=== PATIENT | male | born 1955 | race Caucasian/White ===

== ENCOUNTER 2024-05-18 13:11 | Outpatient (CLI) | payer MEDICARE, SELFPAY | END 2024-05-18 13:12 | disposition home or self-care (01) | PROVIDERS: PCP Internal Medicine; Visit Provider Internal Medicine | DX: M16.11 Unilateral primary osteoarthritis, right hip (principal) | CPT/HCPCS: 20610; 73721; 77002; J1100; J2003; J3301 ==

== ENCOUNTER 2024-08-09 09:37 | Outpatient (CLI) | payer MEDICARE, SELFPAY ==
--- OUTSIDE RECORDS SUMMARY | 2024-08-09 09:48 | XMS_ITS | Clinical Summary ---
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 Name Role Phone Devi Meyers MD Primary Care Provider Allergies Active Allergy Reactions Criticality Noted Date Comments Jorden Inhibitors Cough Low 12/02/2017 Medications coenzyme Q10 200 mg capsuleIndicati ons:Helps statin work better Take 1 capsule (200 mg total) by mouth nightly Active cyanocobalamin 2,000 mcg tabletIndicatio ns:Prevention of Vitamin B12 Deficiency Take 1 tablet (2,000 mcg total) by mouth every morning Active losartan-hydroC HLOROthiazide (HYZAAR) 50-12.5 mg per tablet Take 1 tablet by mouth every morning 4 Active atorvastatin (LIPITOR) 10 mg tablet Take 1 tablet (10 mg total) by mouth nightly 4 Active glucosamine/msm /chondrt/C/hyal (GLUCOSAMINE-CH ONDROITIN-MSM ORAL)Indication s:Arthritis Take 1 tablet by mouth every morning Active oxyCODONE (ROXICODONE) 5 mg immediate release tabletIndicatio ns:Pain Take 1 tablet (5 mg total) by mouth every 4 (four) hours as needed for pain 5 tablet 4 Active fluorouraciL (EFUDEX) 5 % cream Apply topically 5 Active celecoxib (CeleBREX) 200 mg capsule Take 1 capsule (200 mg total) by mouth daily 5 Active Active Problems Problem Noted Date Diagnosed Date 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 Assessment & Plan (06/01/2018 9:22 AM CDT): Fatigue and levels improved on supplementation. Check again before next visit. Nephrolithiasis 12/02/2017 Assessment & Plan (12/02/2017 9:30 AM CDT): Drink plenty of water to avoid dehydration. Avoid salt and animal proteins. History of colon polyps 09/23/2017 Overview (09/23/2017): Added automatically from request for surgery [id number] BMI 31.0-31.9,adult 04/01/2017 Assessment & Plan (12/08/2018 11:36 AM CDT): Patient is encouraged to lose weight with a combination of caloric reduction and increased exercise. Assessment & Plan (06/01/2018 9:22 AM CDT): Patient is encouraged to lose weight with a combination of caloric reduction and increased exercise. Assessment & Plan (06/18/2017 9:20 PM CDT): Patient is encouraged to lose weight with a combination of caloric reduction and increased exercise. Ganglion of hand 12/06/2016 Healthcare maintenance 09/29/2016 Assessment & Plan (12/08/2018 11:36 AM CDT): Flu shot each December. Tetanus booster every 10 years. Shingrix recommended. Colonoscopy due September 2022. PSA yearly. Will see him back in 6 months for blood pressure, cholesterol, blood sugar check. Assessment & Plan (12/02/2017 9:30 AM CDT): Flu shot each December. Will update his Tdap today. Shingrix recommended. Colonoscopy due September 2022. PSA yearly. Will see him back in 6 months for monitoring his blood pressure, cholesterol, blood sugars, sooner if needed. Assessment & Plan (09/29/2016 11:58 AM CDT): Flu shot each December. Zostavax completed. Tetanus booster June 22, 2017. Colonoscopy due July 2017. PSA normal. Follow-up in 6 months for metabolic panel and a blood pressure check, sooner if needed. Gastroesophageal reflux disease 08/04/2013 Overview (06/23/2016): ESOPHAGEAL REFLUX Assessment & Plan (12/08/2018 11:35 AM CDT): Well controlled without medication. Assessment & Plan (06/01/2018 9:21 AM CDT): If coughing episodes continue, would consider going back on PPI therapy. Assessment & Plan (12/02/2017 9:29 AM CDT): Well controlled without medication Assessment & Plan (06/18/2017 9:20 PM CDT): Stable without medication. May need to try H2 latosha or PPI if coughing does not improve. Assessment & Plan (09/29/2016 11:49 AM CDT): Well controlled without medication. Restart ranitidine as needed. Multiple-type hyperlipidemia 08/04/2013 Overview (06/25/2016): MIXED HYPERLIPIDEMIA Assessment & Plan (12/08/2018 11:35 AM CDT): Well controlled on current therapy and will check a lipid panel and LFTs in 6 months. Assessment & Plan (06/01/2018 9:22 AM CDT): Restart atorvastatin check lipids and LFTs before next visit. Assessment & Plan (12/02/2017 9:29 AM CDT): Well controlled on current therapy and will check a lipid panel and LFTs in 6 months. Assessment & Plan (06/18/2017 9:20 PM CDT): Well controlled on current therapy and will check a lipid panel and LFTs in 6 months. Assessment & Plan (09/29/2016 11:54 AM CDT): Well controlled on current therapy and will check a lipid panel and LFTs in 12 months. Impaired fasting glucose 08/04/2013 Overview (06/25/2016): IMPAIRED FASTING GLUCOSE Assessment & Plan (12/08/2018 11:35 AM CDT): Patient should reduce sugar and carbs, increase exercise, maintain proper body weight, and will check an A1c once or twice yearly. Assessment & Plan (06/01/2018 9:22 AM CDT): Patient should reduce sugar and carbs, increase exercise, maintain proper body weight, and will check an A1c once or twice yearly. Assessment & Plan (12/02/2017 9:29 AM CDT): Patient should reduce sugar and carbs, increase exercise, maintain proper body weight, and will check an A1c once or twice yearly. Assessment & Plan (06/18/2017 9:20 PM CDT): Patient should reduce sugar and carbs, increase exercise, maintain proper body weight, and will check an A1c once or twice yearly. Assessment & Plan (04/05/2017 10:19 PM SERVICES ACCOUNT MANAGER): Patient should reduce sugar and carbs, increase exercise, maintain proper body weight, and will check an A1c once or twice yearly. Assessment & Plan (09/29/2016 11:54 AM CDT): Patient should reduce sugar and carbs, increase exercise, maintain proper body weight, and will check an A1c once or twice yearly. Essential hypertension 01/14/2012 Overview (12/02/2017): Cough with jorden inibitors Assessment & Plan (12/08/2018 11:36 AM CDT): Well controlled on the current regimen. Avoidance of salt, proper body weight, and routine exercise recommended. Assessment & Plan (06/01/2018 9:21 AM CDT): Restart losartan and if coughing returns may need to switch to another class. Assessment & Plan (12/02/2017 9:29 AM CDT): Well controlled on the current regimen. Avoidance of salt, proper body weight, and routine exercise recommended. Assessment & Plan (06/18/2017 9:20 PM CDT): Switch to losartan due to coughing. Call back if no improvement. Side effects discussed will call back if any develop. Assessment & Plan (04/05/2017 10:19 PM SERVICES ACCOUNT MANAGER): Start lisinopril and warned of side effects and should call back if any develop. Check metabolic panel in 6 weeks and have him back in 2 months for repeat evaluation. Avoid salt, increase exercise, lose weight. Assessment & Plan (09/29/2016 11:54 AM CDT): Patient wishes to try to lose weight before next visit in order to control his blood pressure. Avoid salt, lose weight, and repeat blood pressure next visit and start medication if indicated. Encounters Date Type Department Care Team Description 07/27/2024 Orders Only [facility] [address] [place] [address] Bahman Echevarria MD Lip cancer 07/27/2024 Orders Only [facility] Department of Otolaryngology Head-Neck Division [address] [facility] [address] [place] [phone] Tenisha Dennis RN Lip cancer (Primary Dx) 07/24/2024 Telephone [facility] Otolaryngology Formerly [facility], [facility] [place], [place] [phone] Mariann Gutierrez MS 07/23/2024 3:20 PM CDT Office Visit [facility] Department of Otolaryngology Head-Neck Division [address] [place] [phone] Bahman Echevarria MD Lip cancer (Primary Dx) 07/23/2024 1:17 PM CDT - 07/23/2024 11:59 PM CDT Hospital Encounter [facility] [address] [place] [phone] Bahman Echevarria MD Lip cancer Discharge Disposition: Discharge to home or self care 07/18/2024 Orders Only [facility] Department of Otolaryngology Head-Neck Division [address] [place] [phone] Bahman Echevarria MD Lip cancer (Primary Dx) 07/09/2024 1:00 PM CDT Office Visit [facility] Department of Otolaryngology Head-Neck Division [address] [place] [phone] [place] PA Lip cancer (Primary Dx) from Last 3 Months Immunizations Immunization Administration Dates Next Due Influenza, Quadrivalent, Spl it, Intramuscular 02/12/2015 Influenza, Quadrivalent, Spl it, Preservative Free, Intradermal 03/02/2016 Influenza, Quadrivalent, Spl it, Preservative Free, Intramuscular 12/28/2017 Influenza, Split 01/21/2010 Influenza, Trivalent, IM (MDV) 4,01/09/2013,01/12/2012,01/14,01/15/2009 Influenza, Unspecified 12/08/2018(Deferr ed: Patient Refused),11/13/2018(Deferred: Patient ill today - not available),01/28/2017 TD Preservative Free 06/22/2007 Tdap 12/02/2017 ZOSTER LIVE 02/12/2015 Surgical History Surgery Date Site/Laterality Comments TONSILLECTOMY AND ADENOIDECTOMY 03/21/1979 - 03/20/1980 T&A age 25 CERVICAL SPINE SURGERY 03/21/2011 - 03/20/2012 Cervical Disk Removal: Dr Henriquez blew out disc in neck ESOPHAGOGASTRODUODENOSCOPY 10/21/2022 with balloon dilation KNEE ARTHROSCOPY 11/19/2008 - 12/18/2008 Left Left Knee bone chip : Arthroscopic repair 11/2008 - Dr Medardo Villalpando CARPAL TUNNEL RELEASE 10/09/2010 Right right carpal tunnel 10-09-10: [facility]-Dr crews CARPAL TUNNEL RELEASE 11/06/2010 Left left carpal tunnel surgery 11-06-10: Dr. Crews SKIN CANCER EXCISION Skin cancer/ AK's: Dr Phipps q 6 months KNEE SURGERY 02/19/2010 Left left knee surg 02/19/10: Dr. Mccauley [facility] KNEE SURGERY Right GANGLION CYST EXCISION 02/22/2017 Right index finger, Dr Campos COLONOSCOPY 08/16/2012, 10/07/2017 & 10/21/2022 Medical History Medical History Date Comments Gastroesophageal reflux disease GERD Cervical disc disease 2004 Cervical D isk Removal Esophageal stricture esophageal stricture s/p EGD with balloon dilation 10/2022 History of knee surgery Left Kne e bone chip s/p arthroscopy 2008 and left knee surg 02/19/10 History of carpal tunnel release right carpal tunnel 10-09-10 and Left carpal tunnel release 11/06/2010 History of skin cancer Skin canc er/ AK's History of hammer toe correction right hammer toe surgery Hyperlipidemia Skin cancer Multiple s/p exc isions, 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 Family History Medical History Relation Name Comments Cancer Brother Alzheimer's disease Father Cancer Father Other Father Alzheimer's Dis ease - ; Prostate cancer Father Cancer -pros barnhart; Alzheimer's disease Mother Alzheime r's Disease; Anesthesia problems Neg Hx Relation Name Status Comments Brother Father Alive Mother Social History Tobacco Use Types Packs/Day Years Used Date Smoking Tobacco: Never Passive Smoke Exposure: Past Smokeless Tobacco: Former Chew Quit: 1993 Tobacco Cessation:Counseling Given: Not Answered Passive Exposure Comments:mom smoked Alcohol Use Standard Drinks/Week Comments Yes 0 (1 standard drink = 0.6 oz pur e alcohol) occasional AUDIT-C Answer Date Recorded Q1: How often do you have a drink containing alc ohol? 2-4 times a month 12/01/2023 Q2: How many drinks containi ng alcohol do you have on a typical day when you are drinking? 1 or 2 12/01/2023 Q3: How often do you have si x or more drinks on one occasion? Never 12/01/2023 PHQ-2 Answer Date Recorded PHQ-2 Score 0 11/11/2018 Personal Safety Answer Date Recorded Have you ever been in or are you currently in a harmful physical or emotional relationship or is someone making you feel afraid or unsafe? Denies 12/20/2023 Sex and Gender Information Value Date Recorded Sex Assigned at Male 06/06/2018 6:46 PM CDT Legal Sex Male 11:53 PM SERVICES ACCOUNT MANAGER Gender Identity Male 06/06/2018 6:46 PM CDT Sexual Orientation Straight 06/06/2018 6: 46 PM CDT Obstetrics History Last Filed Vital Signs Vital Sign Reading Time Taken Comments Blood Pressure 144/89 12/20/2023 12:30 PM CDT Pulse 62 12/20/2023 12:30 PM CDT Temperature 36 C (96.8 F) 12/20/2023 12:00 PM CDT Respiratory Rate 15 12/20/2023 12:30 PM CDT Oxygen Saturation 93% 12/20/2023 12:30 PM CDT Inhaled Oxygen Concentration - - Weight 92.5 kg (204 lb) 07/23/2024 2:32 PM CDT Height 180.3 cm (5' 10.98 ) 01/09/2024 2:23 PM C DT Body Mass Index 28.47 01/09/2024 2:23 PM CDT Plan of Treatment Health Maintenance Due Date Last Done Comments Hepatitis B Screening 1975 Pneumococcal vaccine 65+ (1 of 1 - PCV) 2007 Prostate Cancer Screening-PSA 11/18/2019, 11/22/2017, 09/18/2016 Depression Screening 12/09/2019 12/08/2018, 11/13/2018, 06/01/2018, Additional history exists Well Visit 65+ 2022 12/08/2018, 11/19, 09/29/2016 Covid-19 Vaccine (2023-2 5 season) 2023 01/20/2022, 02/04/2021, 05/26/2020 Influenza Vaccine (Season Ended) 2024 01/05/2022, 12/30/2020, 12/25/2019, Additional history exists Fall Risk Assessment 12/19/2024 12/20/2023, 12/08/2018, 11/13/2018, Additional history exists Colon Cancer Screening-Colonoscopy 10/22/2027 10/21/2022, 10/07/2017, 08/16/2012 DTaP/Tdap/Td Vaccine (2 - Td or Tdap) 12/03/2027 12/02/2017, 06/22/2007 Hepatitis C Screening Completed 03/19/2017 Zoster Vaccine Completed 01/15/2020, 10/19, 02/12/2015 Colon Cancer Screening-CT Colonography Discontinued 10/21/2022, 10/07/2017, 08/16/2012 Colon Cancer Screening-DNA Stool Discontinued 10/21/2022, 10/07/2017, 08/16/2012 Colon Cancer Screening-FIT Discontinued 10/21, 10/07/2017, 08/16/2012 Colon Cancer Screening-Sigmoidoscopy Discontinued 10/21/2022, 10/07/2017, 08/16/2012 Procedures Procedure Name Priority Date/Time Associated Diagnosis Comments SURGICAL PATHOLOGY Routine 07/31/2024 10 :44 AM CDT Lip cancer CT CHEST W CONTRAST Schedule Routine, Read Routine (OP Routine) 07/23/2024 2:[address] Lip cancer [address] SOFT TISSUE NECK W CONTRAST Schedule Routine, Read Routine (OP Routine) 07/23/2024 2:16 PM CDT Lip cancer COLONOSCOPY 10/21/2022 7:19 AM CDT PSA SCREEN Routine 11/17/2018 6:56 AM CDT Screening for prostate cancer Healthcare maintenance HEPATITIS C AB REFLEX RNA QUANT PCR Routine 03/19/2017 12:09 PM SERVICES ACCOUNT MANAGER from Last 3 Months or Most Recently Relevant to Health Maintenance Results * Surgical pathology (07/31/2024 10:44 AM CDT) Tissue (Miscellaneous) 07/31/2024 10:44 AM CDT 07/06/[address] [facility] - 08/07/2024 9:20 AM CDT EPIC results best viewed via link to PDF [facility] [facility], [address], [place] [address] [email or web address] CONSULT REPORT FINAL Note to Patients: This report may contain a detailed description of human tissue sent by a health care provider to the laboratory for pathologic evaluation. The content of this report is essential for diagnosis and may provide important critical findings. This information may be unfamiliar to patients to review without a medical professional present. It is advised that the patient review this report in the presence of a health care provider who can answer questions and explain the details. PATIENT INFORMATION PATIENT NAME: BLAYNE GONZALEZ SEX: M : DOBAGE SPECIMEN INFORMATION COLLECTED: 07/06/2024 RECEIVED: 07/31/2024 REPORTED: 08/07/2024 PHYSICIAN INFORMATION Bahman Echevarria M.D., PH.D.: [address], [address], [place] [address], , DERMATOPATHOLOGY REPORT RESULTS DIAGNOSIS: SKIN, RIGHT NECK, SHAVE BIOPSY (CASE # [id number], 2 SLIDES RECEIVED): SQUAMOUS CELL CARCINOMA, MODERATELY DIFFERENTIATED Note: The lesion does not extend to the margins of the sections examined in this multiply-sectioned specimen. [id number] By this signature, I attest that the above diagnosis is based upon my personal examination of the slides(and/or other material indicated in the diagnosis). Juan F Shelton M.D. Report Electronically Reviewed and Signed Out By Juan F Shelton M.D. 08/07/2024 09:20:54 CLINICAL INFORMATION LIP CANCER SPECIMEN DATAMICROSCOPIC DESCRIPTION: Atypical keratinocytes that have hyperchromatic nuclei and scant cytoplasms extend from the undersurface of the epidermis into the reticular dermis. CK5/6 and BerEp4 immunohistochemical stains were performed and interpreted at the [facility] to further characterize the tumor. The tumor cells expres CK5/6 but are negative for BerEp4. (C44.92) GROSS DESCRIPTION: Received for review are 2 H&E stained glass slides. The slides are labeled with the original accession [id number], accompanied by a corresponding pathology report. The material originates from [employer] ([place], [place]). Clerical Data Follows A; [id number], 86333 IHC, 61471 The characteristics of special, immunohistochemical, and immunofluorescence stains and in-situ hybridization tests performed by the [facility] were deemed acceptable in ongoing plant quality manager measures and in compliance with regulations drawn from the Clinical Laboratory Improvement Act [id number] (CLIA '88). Control reactions for all stains performed were deemed adequate and appropriate by a pathologist prior to evaluation of patient tissue. Some diagnoses were rendered with the assistance of laboratory-developed tests utilizing analyte-specific reagents; the performance characteristic of these tests were determined by [facility] and are not cleared or approved by the [place] Food an Drug administration. Laboratory developed test may only be performed in a facility that is certified by the [facility] as a high-complexity laboratory under CLIA '88. These tests are used for clinical purposes and are not investigational. Bahman Echevarria MD LAB PATHOLOGY ORDERABL ES Final Result [facility] [address] [address] * CT Chest W Contrast (07/23/2024 2:16 PM CDT) Anatomical Region Laterality Modality Body N/A Computed Tomogra phy 07/23/2024 2:43 PM CDT Impressions 07/23/2024 3:10 PM CDT No evidence of metastatic disease in the chest. Dictated by: Shayne Bishop MD The radiology attending physician has personally reviewed this study, and had reviewed and/or edited this written report and agrees with it. Electronically signed by: Azeem Dominique M.D. Narrative 07/23/2024 3:10 PM CDT EXAMINATION: Computed tomography of the chest with intravenous contrast HISTORY: Squamous cell carcinoma of the lip TECHNIQUE: Transaxial computed tomographic images of the chest were obtained with intravenous contrast according to the standard protocol after the uneventful administration of 113 mL Opti-Ray 350 intravenous contrast. COMPARISON: CT from 11/17/2023 FINDINGS: No new or enlarging pulmonary nodule. No consolidation, pleural effusion, or pneumothorax. Central airways are clear. Mild dependent atelectasis. Heart size is normal. No pericardial effusion. Moderate coronary artery calcifications. Thoracic aorta and main pulmonary artery normal in caliber. Calcified left hilar lymph nodes consistent with old granulomatous disease. No axillary, supraclavicular, or mediastinal lymph nodes. Thyroid is unremarkable. Unchanged hepatic cysts and additional too small to characterize lesions. Punctate calcifications in the spleen consistent with old granulomatous disease. Partially imaged cyst in the superior pole the left kidney. Partially imaged anterior cervical discectomy and fusion. No aggressive osseous lesion. Procedure Note Azeem Dominique MD - 07/23/2024 EXAMINATION: Computed tomography of the chest with intravenous contrast HISTORY: Squamous cell carcinoma of the lip TECHNIQUE: Transaxial computed tomographic images of the chest were obtained with intravenous contrast according to the standard protocol after the uneventful administration of 113 mL Opti-Ray 350 intravenous contrast. COMPARISON: CT from 11/17/2023 FINDINGS: No new or enlarging pulmonary nodule. No consolidation, pleural effusion, or pneumothorax. Central airways are clear. Mild dependent atelectasis. Heart size is normal. No pericardial effusion. Moderate coronary artery calcifications. Thoracic aorta and main pulmonary artery normal in caliber. Calcified left hilar lymph nodes consistent with old granulomatous disease. No axillary, supraclavicular, or mediastinal lymph nodes. Thyroid is unremarkable. Unchanged hepatic cysts and additional too small to characterize lesions. Punctate calcifications in the spleen consistent with old granulomatous disease. Partially imaged cyst in the superior pole the left kidney. Partially imaged anterior cervical discectomy and fusion. No aggressive osseous lesion. IMPRESSION: No evidence of metastatic disease in the chest. Dictated by: Shayne Bishop MD The radiology attending physician has personally reviewed this study, and had reviewed and/or edited this written report and agrees with it. Electronically signed by: Azeem Domniique M.D. Bahman Venkat Echevarria MD IM CT PROCEDURES Jo l Result * CT Neck Soft Tissue W Contrast (07/23/2024 2:16 PM CDT) Anatomical Region Laterality Modality Head and Neck N/A Computed Tomogra phy 07/23/2024 3:21 PM CDT Impressions 07/23/2024 6:39 PM CDT No evidence for recurrent lip squamous cell carcinoma. No evidence for cervical lymphadenopathy. Dictated by: Bradly Hernandez MD The radiology attending physician has personally reviewed this study, and had reviewed and/or edited this written report and agrees with it. Electronically signed by: Dewayne Cai M.D. Narrative 07/23/2024 6:39 PM CDT EXAMINATION: CT of the neck with contrast HISTORY: Lip squamous cell carcinoma, status post resection with negative margins. TECHNIQUE: CT of the neck was performed according to the standard protocol with intravenous contrast. Contrast information: 113 mL Optiray-350 IV COMPARISON: CT neck 11/17/2023. FINDINGS: Scattered subcentimeter lymph nodes are seen in the neck. None are pathologically enlarged or abnormally enhancing. The muscles of the neck are normal. Vessels of the neck demonstrate normal course and caliber. Fascial planes are preserved and the deep spaces of the neck are normal. The visualized airway is widely patent. Small tracheal diverticulum. The base of the skull and the temporal bones are normal. Small mucosal retention cysts in the maxillary sinuses. Limited views of the brain including the cerebellum and brainstem are normal. The limited view of the [place] is unremarkable. The visualized portions of the orbits are normal. Anterior cervical discectomy and fusion from C6-C7 with osseous fusion. There is degenerative disc height loss greatest at the C5-C6 and C7-T1 levels. Multilevel facet and uncovertebral arthropathy with up to moderate to severe neuroforaminal stenosis on the left at C5-C6, similar to prior. Moderate spinal canal stenosis at C5-C6, similar to prior. Limited examination of the superior thorax shows no pulmonary infiltrate, suspicious nodules, or pleural effusions. Procedure Note Dewayne Cai MD - 07/23/2024 EXAMINATION: CT of the neck with contrast HISTORY: Lip squamous cell carcinoma, status post resection with negative margins. TECHNIQUE: CT of the neck was performed according to the standard protocol with intravenous contrast. Contrast information: 113 mL Optiray-350 IV COMPARISON: CT neck 11/17/2023. FINDINGS: Scattered subcentimeter lymph nodes are seen in the neck. None are pathologically enlarged or abnormally enhancing. The muscles of the neck are normal. Vessels of the neck demonstrate normal course and caliber. Fascial planes are preserved and the deep spaces of the neck are normal. The visualized airway is widely patent. Small tracheal diverticulum. The base of the skull and the temporal bones are normal. Small mucosal retention cysts in the maxillary sinuses. Limited views of the brain including the cerebellum and brainstem are normal. The limited view of the [place] is unremarkable. The visualized portions of the orbits are normal. Anterior cervical discectomy and fusion from C6-C7 with osseous fusion. There is degenerative disc height loss greatest at the C5-C6 and C7-T1 levels. Multilevel facet and uncovertebral arthropathy with up to moderate to severe neuroforaminal stenosis on the left at C5-C6, similar to prior. Moderate spinal canal stenosis at C5-C6, similar to prior. Limited examination of the superior thorax shows no pulmonary infiltrate, suspicious nodules, or pleural effusions. IMPRESSION: No evidence for recurrent lip squamous cell carcinoma. No evidence for cervical lymphadenopathy. Dictated by: Bradly Hernandez MD The radiology attending physician has personally reviewed this study, and had reviewed and/or edited this written report and agrees with it. Electronically signed by: Dewayne Cai M.D. Bahman Echevarria MD IMG CT PROCEDURES Jo l Result * COLONOSCOPY (10/21/2022 7:19 AM CDT) Anatomical Region Laterality Modality Other Narrative Procedure Note John Petersen MD - 10/21/2022 7:19 AM CDT [facility] Patient Name: Blayne Gonzalez Procedure Date: 10/21/2022 7:19 AM Date of : 1955 Admit Type: Outpatient Age: 67 Gender: Male Attending MD: John Petersen M.D. Room: [facility] ENDOSCOPY ROOM 1 Note Status: Finalized Patient Profile: Refer to note in patient chart for documentation of history and physical. Procedure: Colonoscopy Indications: High risk colon cancer surveillance: Personalhistory of colonic polyps, Last colonoscopy: September 2017 Referring MD: Devi Meyers MD Providers: John Petersen M.D. Impression: - Hemorrhoids found on perianal exam. - Diverticulosis in the sigmoid colon. - The examination was otherwise normal. - No specimens collected. Recommendation: - Discharge patient to home. - Resume previous diet. - Continue present medications. - Repeat colonoscopy in 5 years for surveillance. - Return to primary care physician as previously scheduled. Medicines: Propofol per Anesthesia Complications: No immediate complications. Estimated Blood Loss: Estimated blood loss: none. Procedure: Pre-Anesthesia Assessment: - This assessment was completed [Time ofAssessment] prior to the administration of sedation. - This assessment was completed [Time ofAssessment] prior to the administration of sedation. The benefits, risks and alternatives of theprocedure and sedation were discussed and informed consentwas obtained. All questions were answered. Please referto the signed informed consent document in the medical record. The bowel preparation used was Miralax via single dose instruction. The bowel preparation used was bisacodyl tablets via single dose instruction.The scope was passed under direct vision. TheColonoscope [id number] was introduced through the anus and advanced to the the cecum, identified by appendiceal orifice and ileocecal valve. The colonoscopy was performed without difficulty. The patient tolerated the procedure well. The qualityof the bowel preparation was excellent. The ileocecal valve, appendiceal orifice, and rectum were photographed. Findings: Hemorrhoids were found on perianal exam. Multiple small and large-mouthed diverticula were found in thesigmoid colon. The exam was otherwise without abnormality. Electronically signed by John Petersen M.D. John Petersen M.D. 10/21/2022 8:35:18 AM Number of Addenda: 0 Note Initiated On: 10/21/2022 7:19 AM Procedure Code(s): --- Professional --- G0105, Colorectal cancer screening; colonoscopy on individual at high risk --- Technical --- G0105, Colorectal cancer screening; colonoscopy on individual at high risk Diagnosis Code(s): --- Professional --- K57.30, Diverticulosis of large intestine without perforation orabscess without bleeding K64.9, Unspecified hemorrhoids Z86.010, Personal history of colonic polyps --- Technical --- K57.30, Diverticulosis of large intestine without perforation orabscess without bleeding K64.9, Unspecified hemorrhoids Z86.010, Personal history of colonic polyps CPT copyright 2020 [employer]. All rights reserved. The codes documented in this report are preliminary and upon clinical coder reviewmay be revised to meet current compliance requirements. Recognized by the [employer] for promoting quality in endoscopy us John Petersen MD ENDOSCOPY PROCEDURES Final Re sult * PSA screen (11/17/2018 6:56 AM CDT) PSA-Total 1.24 <=5.40 ng/mL [facility] Comment: Interpretive Data AGE SEX REFERENCE INTERVAL 0 minutes-150 years Female None 0 minutes-49 years Male None 50-59 years Male 0-3.90 60-69 years Male 0-5.40 70-79 years Male 0-6.20 80-150 years Male 0-6.20 Current interpretive data last revised 2018. Blood specimen (specimen) 11/17/2018 6:56 AM CDT 11/17/2018 2:48 PM CDT Sanjay De MD LAB BLOOD ORDERABLES Final R esult [facility] [id number] [place] [address] * Hepatitis C Antibody Reflex Hepatitis C RNA Quantitative PCR (03/19/2017 12:09 PM SERVICES ACCOUNT MANAGER) Hep C Ab Negative Negative JAMES Blood specimen (specimen) 03/19/2017 12:09 PM SERVICES ACCOUNT MANAGER 03/19/2017 12:15 PM SERVICES ACCOUNT MANAGER Narrative JAMES - 03/19/2017 1:01 PM SERVICES ACCOUNT MANAGER Sanjay De MD LAB MICROBIOLOGY - GENERAL O RDERABLES Final Result Performing Organization Address [facility] Co de Phone Number [facility] [address] [place] [address] from Last 3 Months or Most Recently Relevant to Health Maintenance Insurance MEDICARE AETNA SENIOR SUPPLEMENT AETNA MEDICARE AETNA MEDICARE AETNA MEDICARE AETNA SENIOR SUPPLEMENT Advance Directives For more information, please contact: [phone] Documents on File Type Date Recorded 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
--- OUTSIDE RECORDS SUMMARY | 2024-08-09 09:49 | XMS_ITS ---
Author Organization [facility] Address [address] [place] [address] Care Team Providers Care Billet Bed Operator Name Role Phone Devi Meyers MD Primary Care Provider [phone] Active Problems Problem Noted Date Diagnosed Date [...] (09/23/2017): Added automatically from request for surgery [id number] BMI 31.0-31.9,adult 04/01/2017 Assessment & Plan (12/08/2018 [...] yearly. Assessment & Plan (04/05/2017 10:19 PM TOOL BUILDER): Patient should reduce sugar and carbs, increase exercise, maintain proper body weight, and will check an A1c once or twice yearly. Assessment & Plan (09/29/2016 11:54 AM CDT): Patient should reduce sugar and carbs, increase exercise, maintain proper body weight, and will check an A1c once or twice yearly. Essential hypertension 01/14/2012 Overview (12/02/2017): Cough with vladimir inibitors Assessment & Plan (12/08/2018 11:36 AM [...] develop. Assessment & Plan (04/05/2017 10:19 PM TOOL BUILDER): Start lisinopril and warned of side effects [...] next visit and start medication if indicated. Current Treatment and Therapy Plans No current plan information found. Past Treatment and Therapy Plans No past plan information found. Lifetime Dose Tracking * Chemical Lifetime Dose Automatic Entry Manual Entr y DLP 1,566 mGycm 1,566 mGycm 0 mGycm
--- OUTSIDE RECORDS SUMMARY | 2024-08-09 09:49 | XMS_ITS | Clinical Summary ---
Author Organization [facility] Address [address], [facility] [address] [place] [address] Phone Care Team Providers Care Agent Name Role Phone Sanjay De MD Primary Care Provider [phone] Allergies Active Allergy Reactions Criticality Noted Date Comments Jorden Inhibitors Other (see Comments) Low 12/02/2017 Medications atorvastatin (LIPITOR) 20 MG Tablet Take 20 mg by mouth. 06/01/2018 Active Glucosamine-Cho ndroitin 500-400 MG Tablet Take 1 Tab by mouth. Active neomycin-bacitr acin-polymyxin (POLYSPORIN) [phone] Ointment Apply to left eye 4 (four) times a day As directed 11/13/2018 Active Cyanocobalamin (B-12 PO) Take by mouth. Active Social History Tobacco Use Types Packs/Day Years Used Date Smoking Tobacco: Never Smokeless Tobacco: Former Alcohol Use Standard Drinks/Week Comments Yes 0 (1 standard drink = 0.6 oz pur e alcohol) AUDIT-C Answer Date Recorded Frequency of Alcohol Consumption Not on file 12/04/2018 Average Number of Drinks 3 or 4 019 Frequency of Binge Drinking Not on file 11/19 Sex and Gender Information Value Date Recorded Sex Assigned at Not on file Legal Sex Male 10:41 PM CDT Gender Identity Not on file Sexual Orientation Not on file Last Filed Vital Signs Vital Sign Reading Time Taken Comments Blood Pressure 168/110 12/04/2018 10:19 AM CDT Pulse 69 12/04/2018 10:19 AM CDT Temperature 36.4 C (97.6 F) 12/04/2018 10:19 AM CDT Respiratory Rate 18 12/04/2018 10:19 AM CDT Oxygen Saturation 96% 12/04/2018 10:19 AM CDT Inhaled Oxygen Concentration - - Weight 100.2 kg (221 lb) 12/04/2018 10:19 AM CDT Height 180.3 cm (5' 11 ) 12/04/2018 10:19 AM CDT Body Mass Index 30.82 12/04/2018 10:19 AM CDT Plan of Treatment Health Maintenance Due Date Last Done Comments Hepatitis C Virus (HCV) Screening 1955 TdaP Immunization 1955 Colonoscopy 2002 Colorectal Cancer Screening 2002 Cologuard 2007 Immunochemical Fecal Occult Blood 2007 Pneumococcal Immunization (50+ years) (1 of 1 - PCV) 2007 Zoster Immunization (2 of 3) 04/08/2015 02/11/2015 Influenza Immunization (#1) 2023 10/0 11/2017, 01/28/2017, 03/02/2016, Additional history exists SARS-COV-2 Immunization (3 - season) 2023 02/04/2021, 05/26/2020 Respiratory Syncytial Virus (RSV) Immunization (Adult) (1 - 1-dose 75+ series) 02/17/2032 Hepatitis B Immunization Aged Out No longer eligible based on patient's age to complete this topic Meningococcal Immunization (ACWY) Aged Out No longer eligible based on patient's age to complete this topic Rotavirus Immunization Aged Out No lo nger eligible based on patient's age to complete this topic Insurance Care Teams Agent Relationship Specialty Start Date End Date Sanjay De MD PCP - General Internal Medicine 12/04/18
--- OUTSIDE RECORDS SUMMARY | 2024-08-09 09:49 | XMS_ITS | Referral Summary ---
Author Organization [facility] Address [address] [place] [address] Care Team Providers Care Gre Instructor Name Role Phone Devi Meyers MD Primary Care Provider Encounters Date Type Department Care Team Description 07/27/2024 Orders Only [facility] [address] [place] [address] Bahman Echevarria MD Lip cancer 07/27/2024 Orders Only [facility] Department of Otolaryngology Head-Neck Division [address] [place] [phone] Tenisha Dennis RN Lip cancer (Primary Dx) 07/24/2024 Telephone [facility] Otolaryngology [address] [place] [address] Mariann Gutierrez MS 07/23/2024 3:20 PM CDT Office Visit [facility] Department of Otolaryngology Head-Neck Division [address] [place] [phone] Bahman Echevarria MD Lip cancer (Primary Dx) 07/23/2024 1:17 PM CDT - 07/23/2024 11:59 PM CDT Hospital Encounter [facility] [address] [place] [address] Bahman Echevarria MD Lip cancer Discharge Disposition: Discharge to home or self care 07/18/2024 Orders Only [facility] Department of Otolaryngology Head-Neck Division [address] [place] [phone] Bahman Echevarria MD Lip cancer (Primary Dx) 07/09/2024 1:00 PM CDT Office Visit [facility] Department of Otolaryngology Head-Neck Division [address] [place] [phone] Mague Hall PA Lip cancer (Primary Dx) from Last 3 Months Allergies Active Allergy Reactions Criticality Noted Date [...] (09/23/2017): Added automatically from request for surgery [id number] BMI 31.0-31.9,adult 04/01/2017 Assessment & Plan (12/08/2018 [...] without medication. May need to try H2 ltaosha or PPI if coughing does not improve. [...] yearly. Assessment & Plan (04/05/2017 10:19 PM ORTHOPEDIC ASSISTANT): Patient should reduce sugar and carbs, increase [...] develop. Assessment & Plan (04/05/2017 10:19 PM ORTHOPEDIC ASSISTANT): Start lisinopril and warned of side effects [...] next visit and start medication if indicated. Immunizations Immunization Administration Dates Next Due Influenza, Quadrivalent, Spl it, Intramuscular 02/12/2015 Influenza, Quadrivalent, Spl it, Preservative Free, Intradermal 03/02/2016 Influenza, Quadrivalent, Spl it, Preservative Free, Intramuscular 12/28/2017 Influenza, Split 01/21/2010 Influenza, Trivalent, IM (MDV) 4,01/09/2013,01/12/2012,01/14,01/15/2009 Influenza, Unspecified 12/08/2018(Deferr ed: Patient Refused),11/13/2018(Deferred: Patient ill today - not available),01/28/2017 TD Preservative Free 06/22/2007 Tdap 12/02/2017 ZOSTER LIVE 02/12/2015 Social History Tobacco Use Types Packs/Day Years [...] PM CDT Legal Sex Male 11:53 PM ORTHOPEDIC ASSISTANT Gender Identity Male 06/06/2018 6:46 PM CDT Sexual Orientation Straight 06/06/2018 6: 46 PM CDT Last Filed Vital Signs Vital Sign Reading [...] 01/09/2024 2:23 PM CDT Plan of Treatment Not on file Procedures Procedure Name Priority Date/Time Associated Diagnosis [...] RNA QUANT PCR Routine 03/19/2017 12:09 PM ORTHOPEDIC ASSISTANT from Last 3 Months or Most Recently Relevant to Health Maintenance Results * Surgical pathology (07/31/2024 10:44 AM CDT) Tissue (Miscellaneous) 07/31/2024 10:44 AM CDT 07/06/2024 Narrative [facility] - 08/07/2024 9:20 AM CDT EPIC results best viewed via link to PDF [facility] [address] [place] [address], [address], [place] [address] [email or web address] CONSULT REPORT FINAL Note to Patients: This [...] PATIENT INFORMATION PATIENT NAME: BLAYNE GONZALEZ SEX: Reyes : GUNNER SPECIMEN INFORMATION COLLECTED: 07/06/2024 RECEIVED: 07/31/2024 REPORTED: 08/07/2024 PHYSICIAN INFORMATION Bahman Echevarria M.D., PH.D.: [address] [facility], [address], [place] [address], , DERMATOPATHOLOGY REPORT RESULTS DIAGNOSIS: SKIN, RIGHT NECK, SHAVE BIOPSY (CASE # [id number], 2 SLIDES RECEIVED): SQUAMOUS CELL CARCINOMA, MODERATELY [...] stains were performed and interpreted at the [facility] to further characterize the tumor. The tumor cells expres CK5/6 but are negative for BerEp4. (C44.92) GROSS DESCRIPTION: Received for review are 2 H&E stained glass slides. The slides are labeled with the original accession [id number], accompanied by a corresponding pathology report. The material originates from [employer] ([place], [place]). Clerical Data Follows A; [id number]-SY, 38530 IHC, 71992 The characteristics of special, immunohistochemical, and immunofluorescence stains and in-situ hybridization tests performed by the [facility] were deemed acceptable in ongoing water quality manager measures and in compliance with regulations drawn from the Clinical Laboratory Improvement Act oe4553 (CLIA '88). Control reactions for all stains performed were deemed adequate and appropriate by a pathologist prior to evaluation of patient tissue. Some diagnoses were rendered with the assistance of laboratory-developed tests utilizing analyte-specific reagents; the performance characteristic of these tests were determined by [facility] and are not cleared or approved by the [place] Food an Drug administration. Laboratory developed test may only be performed in a facility that is certified by the [facility] as a high-complexity laboratory under CLIA '88. These tests are used for clinical purposes and are not investigational. Bahman Echevarria MD LAB PATHOLOGY ORDERABL ES Final Result [facility] [address] [facility] [address] [place] [address] * CT Chest W Contrast (07/23/2024 2:16 [...] it. Electronically signed by: Azeem Dominique M.D. Bahman Venkat Echevarria MD IM CT [...] are normal. The limited view of the [place] is unremarkable. The visualized portions [...] are normal. The limited view of the [place] is unremarkable. The visualized portions [...] Electronically signed by: Dewayne Cai M.D. Bahman Venkat Echevarria MD IM CT PROCEDURES Jo l Result * COLONOSCOPY (10/21/2022 7:19 AM CDT) Anatomical Region Laterality Modality Other Narrative Procedure Note John Petersen MD - 10/21/2022 7:19 AM CDT [facility] Patient Name: Blayne Gonzalez Procedure Date: 10/21/2022 7:19 AM Date of : 1955 Admit Type: Outpatient Age: 67 Gender: Male Attending MD: John Petersen M.D. Room: [facility] ENDOSCOPY ROOM 1 Note Status: Finalized [...] scope was passed under direct vision. TheColonoscope [id number] was introduced through the anus and advanced [...] history of colonic polyps CPT copyright 2020 [employer]. All rights reserved. The codes documented in this report are preliminary and upon network systems operator reviewmay be revised to meet current compliance requirements. Recognized by the [employer] for promoting quality in endoscopy John Petersen MD ENDOSCOPY PROCEDURES Final Re sult * PSA screen (11/17/2018 6:56 AM CDT) PSA-Total 1.24 <=5.40 ng/mL [facility] Comment: Interpretive Data AGE SEX REFERENCE INTERVAL 0 minutes-150 years Female None 0 minutes-49 years Male None 50-59 years Male 0-3.90 60-69 years Male 0-5.40 70-79 years Male 0-6.20 80-150 years Male 0-6.20 Current interpretive data last revised 2018. Blood specimen (specimen) 11/17/2018 6:56 AM CDT 11/17/2018 2:48 PM CDT Sanjay De MD LAB BLOOD ORDERABLES Final R esult [facility] [address] [place] [address] * Hepatitis C Antibody Reflex Hepatitis C RNA Quantitative PCR (03/19/2017 12:09 PM ORTHOPEDIC ASSISTANT) Hep C Ab Negative Negative [facility] Blood specimen (specimen) 03/19/2017 12:09 PM ORTHOPEDIC ASSISTANT 03/19/2017 12:15 PM ORTHOPEDIC ASSISTANT Narrative [facility] - 03/19/2017 1:01 PM ORTHOPEDIC ASSISTANT Sanjay De MD LAB MICROBIOLOGY - GENERAL O RDERABLES Final Result Performing Organization Address City/[facility]/ZIP Co de Phone Number [facility] [address] [place], [place] [phone] from Last 3 Months or Most Recently Relevant to Health Maintenance Insurance MEDICARE T SENIOR SUPPLEMENT AETNA MEDICARE AETNA MEDICARE T MEDICARE AETNA SENIOR SUPPLEMENT Advance Directives For more information, please contact: [phone] Documents on File Type Date Recorded 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
--- OUTSIDE RECORDS SUMMARY | 2024-08-09 09:49 | XMS_ITS | Encounter Summary ---
Author Organization [facility] Address [address] [place] [address] Phone Care Team Providers Care Carcass Splitter Name Role Phone Sanjay De MD Primary Care Provider [phone] Devi Meyers MD Primary Care Provider [phone] Encounter Details Date Type Department Care Team (Late st Contact Info) Description 05/21/2017 Orders Only [facility] ProviderGarima MD [address] [place] [address] Social History Tobacco Use Types Packs/Day Years Used Date Smoking Tobacco: Never Smokeless Tobacco: Never Alcohol Use Standard Drinks/Week Comments Yes 0 (1 standard drink = 0.6 oz pur e alcohol) occasional Sex and Gender Information Value Date Recorded Sex Assigned at Male 06/06/2018 6:46 PM CDT Legal Sex Male 11:53 PM DOG LICENSE OFFICER SUPERVISOR Gender Identity Male 06/06/2018 6:46 PM CDT Sexual Orientation Straight 06/06/2018 6: 46 PM CDT documented as of this encounter Plan of Treatment Not on file documented as of this encounter Procedures Procedure Name Priority Date/Time Associated Diagnosis Comments DISCHARGE LABORATORY CUMULATIVE REPORT 05/21/2017 12:00 AM DOG LICENSE OFFICER SUPERVISOR documented in this encounter Results * DISCHARGE LABORATORY CUMULATIVE REPORT (05/21/2017 12:00 AM DOG LICENSE OFFICER SUPERVISOR) Narrative 05/21/2017 12:00 AM DOG LICENSE OFFICER SUPERVISOR Ordered by an unspecified provider. us Historical Provider LAB BLOOD ORDERABLES Jo l Result documented in this encounter Visit Diagnoses Not on filedocumented in this encounter Care Teams Carcass Splitter Relationship Specialty Start Date End Date Sanjay De MD PCP - General 10/13/16 05/03/22 Devi Meyers MD [address] [place], [place] [id number] PCP - General Internal Medicine 05/04/22 documented as of this encounter
--- OUTSIDE RECORDS SUMMARY | 2024-08-09 09:49 | XMS_ITS | Encounter Summary ---
Author Organization [facility] Address [address] [place] [address] Phone Care Team Providers Care Dial Mounter Name Role Phone Sanjay De MD Primary Care Provider [phone] Devi Meyers MD Primary Care Provider [phone] Encounter Details Date Type Department Care Team (Late st Contact Info) Description 03/19/[address] [facility] ProviderGarima MD [address] [place] [address] Social History Tobacco Use Types Packs/Day Years Used Date Smoking Tobacco: Never Smokeless Tobacco: Never Alcohol Use Standard Drinks/Week Comments Yes 0 (1 standard drink = 0.6 oz pur e alcohol) occasional Sex and Gender Information Value Date Recorded Sex Assigned at Male 06/06/2018 6:46 PM CDT Legal Sex Male 11:53 PM STUNNER Gender Identity Male 06/06/2018 6:46 PM CDT Sexual Orientation Straight 06/06/2018 6: 46 PM CDT documented as of this encounter Plan of Treatment Not on file documented as of this encounter Procedures Procedure Name Priority Date/Time Associated Diagnosis Comments DISCHARGE LABORATORY CUMULATIVE REPORT 03/19/2017 12:00 AM STUNNER documented in this encounter Results * DISCHARGE LABORATORY CUMULATIVE REPORT (03/19/2017 12:00 AM STUNNER) Narrative 03/19/2017 12:00 AM STUNNER Ordered by an unspecified provider. us Historical Provider LAB BLOOD ORDERABLES Jo l Result documented in this encounter Visit Diagnoses Not on filedocumented in this encounter Care Teams Dial Mounter Relationship Specialty Start Date End Date Sanjay De MD PCP - General 10/13/16 05/03/22 Devi Meyers MD [address] [place], [place] [id number] PCP - General Internal Medicine 05/04/22 documented as of this encounter
--- NOTE | 2024-08-09 10:46 | ECG_ITS ---
Test Date: 2024-08-09 10:59:32 Measurements Intervals [place] Rate: 58 P: 50 DE: 174 QRS: 1 QRSD: 149 T: 11 QT: 433 QTc: 427 Interpretive Statements SINUS BRADYCARDIA RIGHT BUNDLE BRANCH BLOCK [120+ ms QRS DURATION, UPRIGHT V1, 40+ ms S IN I/aVL/V4/V5/V6] No previous ECG available for comparison Electronically Signed On 08-09-2024 14:11:52 CDT by Sae Barnes M.D.
[2024-08-09 11:52] LABS: Basophils Percent Auto 0.4 % (0.2-1.2); Eosinophils Absolute Auto 0.1 K/mm3 (0-0.3); Eosinophils Percent Auto 2.2 % (0-4.4); Hemoglobin 13.6 g/dL (14.0-18.0); Immature Granulocyte Absolute 0.01 K/mm3 (0.00-0.031); Immature Granulocyte Percent A 0.2 % (0-0.5); Lymphocytes Absolute Auto 0.95 K/mm3 (0.9-3.2); Lymphocytes Percent Auto 20.5 % (18.3-44.2); Mean Corpuscular HGB Conc 32.4 g/dl (32-36); Mean Corpuscular Volume 92.7 fl (80-100); Mean Platelet Volume 11.5 fl (7.4-10.4); Monocytes Absolute Auto 0.4 K/mm3 (0.1-0.6); Monocytes Percent Auto 9.3 % (2.6-8.5); Neutrophils Absolute Auto 3.1 K/mm3 (1.3-6.7); Neutrophils Percent Auto 67.4 % (45.5-73.1); Platelet Count Result 182 k/mm3 (150-375); Red Blood Count 4.53 M/mm3 (4.6-6.20); White Blood Count 4.6 K/mm3 (4.5-10.0)
[2024-08-09 12:05] LABS: Albumin Level 4.3 g/dL (3.5-5.1); Anion Gap 7 mmol/L (4-12); Blood Urea Nitrogen 15 mg/dL (9-20); Calcium 9.2 mg/dL (8.4-10.2); Carbon Dioxide 28 mmol/L (22-30); Chloride 103 mmol/L (98-107); Estimated Glomerular Filt Rate > 60; Glucose 111 mg/dL (65-110); Potassium 4.1 mmol/L (3.4-5.0); Sodium 138 mmol/L (137-145)
[2024-08-09 12:06] LABS: Urine Cotinine NEGATIVE
[2024-08-09 12:24] LABS: Hemoglobin A1C 5.5 % (<5.7)
== END 2024-08-09 09:38 | disposition home or self-care (01) ==
LOC: ANHSURGERY 09:45
PROVIDERS: PCP Internal Medicine; Visit Provider Orthopaedic Surgery
DX: Z01.818 Encounter for other preprocedural examination (principal); M16.11 Unilateral primary osteoarthritis, right hip; I45.10 Unspecified right bundle-branch block; R00.1 Bradycardia, unspecified
CPT/HCPCS: 80048; 80307; 82040; 83036; 85025; 87081; 93005

== ENCOUNTER 2024-09-03 01:54 | Day surgery (SDC) | payer MEDICARE, SELFPAY ==
--- NOTE | 2024-08-09 09:44 | PC.NURSE ---
Report to the Outpatient Waiting Room, entrance under the green pavilion located off [facility], at time _6AM on date _09/03/24 . Planned Procedure Time: __7:30 AM .? Time changes happen often and if your time is changed the preop area will call you the afternoon before. - You and your visitor will be asked to self-screen and do not enter if you have any COVID symptoms. Please call surgeon if you need to reschedule. - A mask is optional within the hospital at this time. Patients may have clear liquids (water, carbonated beverages, clear teas, apple juice) until 3 hours prior to surgery ( 4:30 AM) with a maximum of 20 ounces. - No food from midnight until time of surgery and no smoking, or chewing tobacco (or any form of nicotine). No chewing gum, candy or mints. Take only the following medications with a SIP of water on the morning of surgery: NONE DO NOT STOP ANY OF YOUR OTHER PRESCRIPTION MEDICATIONS PRIOR TO SURGERY EXCEPT THE FOLLOWING Hold all vitamins and supplements for 3 days per anesthesiologist.LAST DOSE 08/30/24 Medications to discontinue per physician MAY CONTINUE CELECOXIB PER DR SAMUELS _ Please no make-up, nail gibraltarian, hairspray, perfume, deodorant, or body powder the day of surgery.? No jewelry (including any body piercings) or valuables the day of surgery, leave them at home.? Please take a shower or bath the night before, or the morning of, surgery with an antibacterial soap.? Wear comfortable, loose fitting clothing.? Children are encouraged to wear pajamas. - Jewelry must be removed prior to entering the operating room.? Rings and piercings that are not removed may be cut off. - The hospital will not accept responsibility for valuables.? - Please leave all valuables, including medications, at home the day of surgery. If you are going home after surgery, a licensed taxi cab driver must drive you home.? - NO public transportation without another adult if you receive anesthesia. - We recommend that an adult stay with you for 24 hours following discharge. - We also recommend that you do not drive, make important decision, drink alcoholic beverages, or take any drugs that were not prescribed by your health care provider for at least 24 hours after your discharge time. For Pediatric surgeries, we recommend two adults accompany the child home. Follow any additional instructions given to you from your surgeon. VERBAL AND WRITTEN instructions given to __PATIENT and asked if any additional questions and then verbalized understanding. Patient advised to call surgeon office or pre surgery nurse liaison [phone] if any additional questions.
[2024-08-09 09:50] VITALS: BMI 30.2
[2024-08-09 10:33] VITALS: BP 139/86; PULSE 63; RESP 18; TEMP 36.8; O2SAT 98
--- NOTE | 2024-08-31 11:10 | P.HP_ITS ---
H&P: HPI History of Present Illness Date/Time: 08/31/24 11:10 Chief Complaint: Right hip DJD Narrative: 69-year-old male presents today for a right anterior total hip arthroplasty. Patient has been having symptoms in the right hip for over a year. Pain has been progressively worsening. He has been taking Celebrex 200 mg daily since April without much improvement of his symptoms. He did have cortisone in jection under fluoroscopic guidance in April of this year which gave him no relief. Patient has severe osteoarthritis of the right hip. He feels this point it is affecting his daily lifestyle and feels he is ready proceed with total arthroplasty. Review of Systems Review of Systems: All systems reviewed & are unremarkable except as noted in HPI and below PMFSH Surgical History Surgical History (Updated 07/06/24 @ 07:44 by Janessa Carvajal [facility]) History of carpal tunnel release 2013 History of neck surgery disc replacement 2003 History of knee surgery [id number] History of tonsillectomy 1977 Social History Social History (Updated 07/06/24 @ 08:08 by Shayna Pino [facility]) Smoking status: Never smoker Additional smoking assessment comments: DENIES ANY FORM OF TOBACCO USE. QUIT CHEWING TOBACCO 2009 Alcohol intake: current Drinks per week: 5 Alcohol use details: BEER Substance use: never Do You Feel Safe in your Home?: Yes Lack of Transportation: No Lack of Food: Never True Current Housing: I Have Housing Concerned About Future Housing: No Difficulty Paying Gas/Electric Bills: No Difficulty Paying for Meds: No Currently Unemployed: No Living arrangements: with family Spiritual care concerns: No Meds Home Medications and Allergies Home Medications ?Medication ?Instructions ?Recorded ?Confirmed ?Type antiarthritic combination no.2 900 1,500 mg PO DAILY 07/06/24 08/09/24 History mg tablet (glucosamine-chondroitin) atorvastatin 10 mg tablet (Lipitor) 10 mg PO DAILY 07/06/24 08/09/24 History celecoxib 200 mg capsule 200 mg PO DAILY 07/06/24 08/09/24 History coenzyme Q10 200 mg capsule 200 mg PO DAILY 07/06/24 08/09/24 History losartan 50 mg-hydrochlorothiazide 1 tablet PO DAILY 07/06/24 08/09/24 History 12.5 mg tablet mecobalamin (vitamin B12) 1,000 2,000 mcg PO DAILY 07/06/24 08/09/24 History mcg chewable tablet omega-3 fatty acids 1,250 mg 1,250 mg PO DAILY 07/06/24 08/09/24 History capsule fluorouracil 5 % topical cream 1 applic topical PRN FACE 08/09/24 08/09/24 History Allergies Allergy/AdvReac Type Severity Reaction Status Date / Time No Known Allergies Allergy Unverified 08/09/24 09:51 Exam Narrative: 69-year-old male alert pleasant. He is 5 ft 9 206 lb, BMI is 29.8. He walks with a minimal limp. Right hip flexion is to 90? causing him anterior lateral hip pain. Internal rotation is 0 causing him severe anterior lateral hip pain, external rotation to 50 without discomfort. Stinchfield maneuver causes him moderate anterior groin pain. He has normal abduction strength and no tenderness over the greater trochanter. Quad strength is normal. 2+ posterior tibial artery pulse palpable, 1+ dorsalis pedis, no edema in either lower extremity. No numbness or tingling in either lower extremity. Skin around the hip and groin crease are normal. Resp: Auscultation: clear to auscultation bilaterally Cardio: Rate: regular rate Rhythm: regular rhythm Assessment and Plan Assessment and plan (1) Primary osteoarthritis of right hip: Code(s): M16.11 - Unilateral primary osteoarthritis, right hip Status: Acute Assessment and Plan: 69-year-old male who has severe osteoarthritis the right hip with severe symptoms a daily basis. Patient feels he is ready proceed with total hip arthroplasty at this point. Surgical procedures well as the risks and complications were discussed in detail all questions were answered and we will proceed. Patient may continue with the Celebrex is time surgery. He will avoid any other aspirin or ibuprofen products 1 week prior to surgery. He will see his primary care doctor for pre-surgical clearance. His nasal swab was n egative. Hemoglobin 13.6 and platelets were 182. Chem panel is all within normal limits creatinine 0.89.
[2024-09-03] VITALS (13 sets, daily range): BP systolic 119–149; BP diastolic 71–86; PULSE 80–101; RESP 12–22; TEMP 36.1–36.8; O2SAT 95–100; BMI 29.4
--- NOTE | ~2024-09-03 | XR_ITS ---
EXAMINATION: XR surgery orthopedic DATE: 09/03/2024 10:42 INDICATION: Intraoperative evaluation during right total hip arthroplasty TECHNIQUE: 2 fluoroscopic images of the right hip were obtained during procedure performed by Dr. Gregoria artis. Radiologist was not present for the imaging or procedure. The amount of fluoroscopy time used d uring this procedure was 0.8 minutes. Total DAP was 0.358 mGym^2. COMPARISON: None. FINDINGS: Intraoperative image during a right total hip arthroplasty demonstrate placement of a noncemented rig ht total hip arthroplasty which is in near-anatomic alignment. The acetabular component is affixed wi th at least a single screw. No fractures in the visualized bones. IMPRESSION: 1. Expected appearance during right total hip arthroplasty. Reviewed, dictated and finalized at location A.
--- NOTE | ~2024-09-03 | XR_ITS ---
XR hip RT 1V w AP pelvis Ordering provider: Lalo Davis MD History: . RIGHT TOTAL HIP ANTERIOR APPROACH . Comparison: None. FINDINGS: BONES: No acute fracture or dislocation. HIP JOINT SPACES: Right hip arthroplasty. Left hip severe osteoarthritic changes. PUBIC SYMPHYSIS: Normal. SOFT TISSUES: Normal. IMPRESSION: No acute osseous abnormality pelvis and right hip. Right hip arthroplasty. Severe left hip osteoarthr itic changes. Reviewed, dictated and finalized at location A. IMPRESSION: No acute osseous abnormality pelvis and right hip. Right hip arthroplasty. Alka re left hip osteoarthritic changes.
--- OUTSIDE RECORDS SUMMARY | 2024-09-03 02:00 | XMS_ITS | Clinical Summary ---
Author Organization [facility] Address [address] [place] [address] Care Team Providers Care Cashier Receptionist Name Role Phone Devi Meyers MD Primary [...] (09/23/2017): Added automatically from request for surgery [id number] BMI 31.0-31.9,adult 04/01/2017 Assessment & Plan (12/08/2018 [...] yearly. Assessment & Plan (04/05/2017 10:19 PM CONSTRUCTION ENGINEERING MANAGER): Patient should reduce sugar and carbs, [...] develop. Assessment & Plan (04/05/2017 10:19 PM CONSTRUCTION ENGINEERING MANAGER): Start lisinopril and warned of side [...] Encounters Date Type Department Care Team Description 08/15/2024 Results Follow-Up [facility] Department of Otolaryngology Head-Neck Division [address] [place] [address] [address] [place] [address] Chen Rudd RN Surgical pathology 07/27/2024 Orders Only [facility] [address] [place] [address] Bahman Echevarria MD Lip cancer 07/27/2024 Orders Only [facility] Department of Otolaryngology Head-Neck Division [address] [place] [address] 5 [place] [address] Tenisha Dennsi RN Lip cancer (Primary Dx) 07/24/2024 Telephone [facility] Otolaryngology [facility] [place] [address] Mariann Gutierrez MS 07/23/2024 3:20 PM CDT Office Visit [facility] Department of Otolaryngology Head-Neck Division [address] [place] [phone] Bahman Echevarria MD Lip cancer (Primary Dx) 07/23/2024 1:17 PM CDT - 07/23/2024 11:59 PM CDT Hospital Encounter [facility] [address] [place] [address] Bahman Echevarria MD Lip cancer Discharge Disposition: Discharge to home or self care 07/18/2024 Orders Only [facility] Department of Otolaryngology Head-Neck Division [address] [place] [phone] Bahman Echevarria MD Lip cancer (Primary Dx) 07/09/2024 1:00 PM CDT Office Visit [facility] Department of Otolaryngology Head-Neck Division [address] [place] [phone] Mague Hall PA Lip cancer (Primary Dx) [...] 11/19/2008 - 12/18/2008 Left Left Knee bone chip: Arthroscopic repair 11/2008 - Dr Medardo Villalpando CARPAL TUNNEL RELEASE 10/09/2010 Right right carpal tunnel 10-09-10: [facility]-Dr crews CARPAL TUNNEL RELEASE 11/06/2010 Left left carpal tunnel surgery 11-06-10: Dr. Crews SKIN CANCER EXCISION Skin cancer/ AK's: Dr Moise thibodeaux 6 months KNEE SURGERY 02/19/2010 Left left knee surg 02/19/10: Dr. Mccauley [facility] KNEE SURGERY Right GANGLION CYST EXCISION [...] PM CDT Legal Sex Male 11:53 PM CONSTRUCTION ENGINEERING MANAGER Gender Identity Male 06/06/2018 6:46 PM [...] 2:32 PM CDT Height 180.3 cm (5' 10.98) 01/09/2024 2:23 PM C DT Body Mass Index 28.47 01/09/2024 2:23 PM CDT Plan of Treatment Health Maintenance Due Date Last Done Comments Hepatitis B Screening 1975 Pneumococcal vaccine 65+ (1 of 1 - PCV) 2007 Prostate Cancer Screening-PSA 11/18/2019, 11/22/2017, 09/18/2016 Depression Screening 12/09/2019 12/08/2018, 11/13/2018, 06/01/2018, Additional history exists Well Visit 65+ 2022 12/08/2018, 11/19, 09/29/2016 Covid-19 Vaccine (4 2023-2 5 season) 2023 01/20/2022, 02/04/2021, 05/26/2020 Influenza [...] RNA QUANT PCR Routine 03/19/2017 12:09 PM CONSTRUCTION ENGINEERING MANAGER from Last 3 Months or Most Recently Relevant to Health Maintenance Results * Surgical pathology (07/31/2024 10:44 AM CDT) Tissue (Miscellaneous) 07/31/2024 10:44 AM CDT 07/06/2024 Narrative [facility] - 08/07/2024 9:20 AM CDT EPIC results best viewed via link to PDF [facility] [address] [place] [address], [address], [place] [address] [email or web address] CONSULT REPORT FINAL Note to Patients: This [...] PHYSICIAN INFORMATION Bahman Echevarria M.D., PH.D.: [address] [facility], [address], [place] [address], , DERMATOPATHOLOGY REPORT RESULTS DIAGNOSIS: SKIN, RIGHT NECK, SHAVE BIOPSY (CASE # [id number], 2 SLIDES RECEIVED): SQUAMOUS CELL CARCINOMA, MODERATELY [...] stains were performed and interpreted at the [facility] to further characterize the tumor. The tumor cells expres CK5/6 but are negative for BerEp4. (C44.92) GROSS DESCRIPTION: Received for review are 2 H&E stained glass slides. The slides are labeled with the original accession [id number], accompanied by a corresponding pathology report. The material originates from [employer] ([place], [place]). Clerical Data Follows A; 85846-TG, 13783 IHC, 29077 The characteristics of special, immunohistochemical, and immunofluorescence stains and in-situ hybridization tests performed by the [facility] were deemed acceptable in ongoing director quality systems measures and in compliance with regulations drawn from the Clinical Laboratory Improvement Act xe3432 (CLIA '88). Control reactions for all stains performed were deemed adequate and appropriate by a pathologist prior to evaluation of patient tissue. Some diagnoses were rendered with the assistance of laboratory-developed tests utilizing analyte-specific reagents; the performance characteristic of these tests were determined by [facility] and are not cleared or approved by the [place] Food an Drug administration. Laboratory developed test may only be performed in a facility that is certified by the [facility] as a high-complexity laboratory under CLIA '88. These tests are used for clinical purposes and are not investigational. Bahman Echevarria MD LAB PATHOLOGY ORDERABL ES Final Result [facility] [address] [address] * CT Chest W Contrast (07/23/2024 2:16 [...] and agrees with it. Electronically signed by: Kena Rangel 07/23/2024 3:10 PM CDT EXAMINATION: Computed tomography [...] Azeem Dominique M.D. Bahman Venkat Echevarria MD IMG CT PROCEDURES Jo l Result * CT [...] are normal. The limited view of the [place] is unremarkable. The visualized portions [...] are normal. The limited view of the [place] is unremarkable. The visualized portions [...] Petersen MD - 10/21/2022 7:19 AM CDT [facility] Patient Name: Blayne Gonzalez Procedure Date: 10/21/2022 7:19 AM Date of : 1955 Admit Type: Outpatient Age: 67 Gender: Male Attending MD: John Petersen M.D. Room: [facility] 1 Note Status: Finalized Patient [...] scope was passed under direct vision. TheColonoscope [id number] was introduced through the anus and advanced [...] history of colonic polyps CPT copyright 2020 [employer]. All rights reserved. The codes documented in this report are preliminary and upon pharmaceutical scientist reviewmay be revised to meet current compliance requirements. Recognized by the [employer] for promoting quality in endoscopy us John Petersen MD ENDOSCOPY PROCEDURES Final Re sult * PSA screen (11/17/2018 6:56 AM CDT) PSA-Total 1.24 <=5.40 ng/mL [facility] Comment: Interpretive Data AGE SEX REFERENCE INTERVAL 0 minutes-150 years Female None 0 minutes-49 years Male None 50-59 years Male 0-3.90 60-69 years Male 0-5.40 70-79 years Male 0-6.20 80-150 years Male 0-6.20 Current interpretive data last revised 2018. Blood specimen (specimen) 11/17/2018 6:56 AM CDT 11/17/2018 2:48 PM CDT Sanjay De MD LAB BLOOD ORDERABLES Final R esult Performing Organization Address City/[facility] Co de Phone Number [facility] [address] [place], [place] [phone] * Hepatitis C Antibody Reflex Hepatitis C RNA Quantitative PCR (03/19/2017 12:09 PM CONSTRUCTION ENGINEERING MANAGER) Hep C Ab Negative Negative [facility] Blood specimen (specimen) 03/19/2017 12:09 PM CONSTRUCTION ENGINEERING MANAGER 03/19/2017 12:15 PM CONSTRUCTION ENGINEERING MANAGER Narrative [facility] - 03/19/2017 1:01 PM CONSTRUCTION ENGINEERING MANAGER Sanjay De MD LAB MICROBIOLOGY - GENERAL O RDERABLES Final Result Performing Organization Address [facility] Co de Phone Number [facility] [address] [place] [address] from Last 3 Months or Most Recently Relevant to Health Maintenance Insurance MEDICARE AETNA SENIOR SUPPLEMENT AETNA MEDICARE AETNA MEDICARE AETNA MEDICARE AETNA SENIOR SUPPLEMENT Advance Directives For more information, please contact: [phone] Documents on File Type Date Recorded Patient Dental Laboratory Technician Expl anation ADVANCE DIRECTIVE 12/20/2023 9:31 AM Power of Tank Setter Helper-Medical * Full Code (Latest Code Status on File) Date Activated Date Inactivated Comments 10/21/2022 7:24 AM 10/21/2022 1:23 PM * Full Code Date Activated Date Inactivated Comments 10/21/2022 7:24 AM 10/21/2022 7:24 AM * Full Code Date Activated Date Inactivated Comments 10/07/2017 10:23 AM 10/07/2017 2:10 PM Care Teams Cashier Receptionist Relationship Specialty Start Date End Date Devi Meyers MD [address] [place] [address] PCP - General Internal Medicine 05/04/22
--- OUTSIDE RECORDS SUMMARY | 2024-09-03 02:00 | XMS_ITS | Encounter Summary ---
Author Organization [facility] Address [address] [place] [address] Phone Care Team Providers Care Service Agent Name Role Phone Sanjay De MD Primary Care Provider [phone] Devi Meyers MD Primary Care Provider + [phone] Encounter Details Date Type Department Care Team (Late st Contact Info) Description 03/19/2017 Orders Only [facility] ProviderGarima MD [address] [place] [address] Social History Tobacco Use Types Packs/Day Years Used Date Smoking Tobacco: Never Smokeless Tobacco: Never Alcohol Use Standard Drinks/Week Comments Yes 0 (1 standard drink = 0.6 oz pur e alcohol) occasional Sex and Gender Information Value Date Recorded Sex Assigned at Male 06/06/2018 6:46 PM CDT Legal Sex Male 11:53 PM COUNTY CORONER Gender Identity Male 06/06/2018 6:46 PM CDT Sexual Orientation Straight 06/06/2018 6: 46 PM CDT documented as of this encounter Plan of Treatment Not on file documented as of this encounter Procedures Procedure Name Priority Date/Time Associated Diagnosis Comments DISCHARGE LABORATORY CUMULATIVE REPORT 03/19/2017 12:00 AM COUNTY CORONER documented in this encounter Results * DISCHARGE LABORATORY CUMULATIVE REPORT (03/19/2017 12:00 AM COUNTY CORONER) Narrative 03/19/2017 12:00 AM COUNTY CORONER Ordered by an unspecified provider. us Historical Provider LAB BLOOD ORDERABLES Jo l Result documented in this encounter Visit Diagnoses Not on filedocumented in this encounter Care Teams Service Agent Relationship Specialty Start Date End Date Sanjay De MD PCP - General 10/13/16 05/03/22 Devi Meyers MD [address] [place], [place] [phone] PCP - General Internal Medicine 05/04/22 documented as of this encounter
--- OUTSIDE RECORDS SUMMARY | 2024-09-03 02:00 | XMS_ITS ---
Author Organization [facility] Address [address] [place] [address] Care Team Providers Care Atmospheric Drier Tender Name Role Phone Devi Meyers MD Primary Care Provider Active Problems Problem Noted Date Diagnosed Date [...] (09/23/2017): Added automatically from request for surgery [id number] BMI 31.0-31.9,adult 04/01/2017 Assessment & Plan (12/08/2018 [...] yearly. Assessment & Plan (04/05/2017 10:19 PM LEAFLET DISTRIBUTOR): Patient should reduce sugar and carbs, increase [...] develop. Assessment & Plan (04/05/2017 10:19 PM LEAFLET DISTRIBUTOR): Start lisinopril and warned of side effects [...]
--- OUTSIDE RECORDS SUMMARY | 2024-09-03 02:00 | XMS_ITS | Encounter Summary ---
Author Organization [facility] Address [address] [place] [address] Phone Care Team Providers Care Apns Name Role Phone Sanjay De MD Primary Care Provider [phone] Devi eMyers MD Primary Care Provider + [phone] Encounter Details Date Type Department Care Team (Late st Contact Info) Description 05/21/2017 Orders Only [facility] ProviderGarima MD [address] [place] [address] Social History Tobacco Use Types Packs/Day Years Used Date Smoking Tobacco: Never Smokeless Tobacco: Never Alcohol Use Standard Drinks/Week Comments Yes 0 (1 standard drink = 0.6 oz pur e alcohol) occasional Sex and Gender Information Value Date Recorded Sex Assigned at Male 06/06/2018 6:46 PM CDT Legal Sex Male 11:53 PM EQUIPMENT OPERATION INSTRUCTOR Gender Identity Male 06/06/2018 6:46 PM CDT Sexual Orientation Straight 06/06/2018 6: 46 PM CDT documented as of this encounter Plan of Treatment Not on file documented as of this encounter Procedures Procedure Name Priority Date/Time Associated Diagnosis Comments DISCHARGE LABORATORY CUMULATIVE REPORT 05/21/2017 12:00 AM EQUIPMENT OPERATION INSTRUCTOR documented in this encounter Results * DISCHARGE LABORATORY CUMULATIVE REPORT (05/21/2017 12:00 AM EQUIPMENT OPERATION INSTRUCTOR) Narrative 05/21/2017 12:00 AM EQUIPMENT OPERATION INSTRUCTOR Ordered by an unspecified provider. us Historical Provider LAB BLOOD ORDERABLES Jo l Result documented in this encounter Visit Diagnoses Not on filedocumented in this encounter Care Teams Apns Relationship Specialty Start Date End Date Sanjay De MD PCP - General 10/13/16 05/03/22 Devi Meyers MD [address] [place], [place] [id number] PCP - General Internal Medicine 05/04/22 documented as of this encounter
--- OUTSIDE RECORDS SUMMARY | 2024-09-03 02:00 | XMS_ITS | Clinical Summary ---
Author Organization [facility] Address [address], [facility] [address] [place] [address] Phone Care Team Providers Care Supervising Chef Name Role Phone Sanjay De MD Primary Care Provider [phone] Allergies Active Allergy Reactions Criticality Noted Date Comments Jorden Inhibitors Other (see Comments) Low 12/02/2017 Medications atorvastatin (LIPITOR) 20 MG Tablet Take 20 mg by mouth. 06/01/2018 Active Glucosamine-Cho ndroitin 500-400 MG Tablet Take 1 Tab by mouth. Active neomycin-bacitr acin-polymyxin (POLYSPORIN) [id number] Ointment Apply to left eye 4 (four) [...] 10:19 AM CDT Height 180.3 cm (5' 11) 12/04/2018 10:19 AM CDT Body Mass Index 30.82 12/04/2018 10:19 AM CDT Plan of Treatment Health Maintenance Due Date Last Done Comments Hepatitis C Virus (HCV) Screening 1955 TdaP Immunization 1955 Cologuard 2002 Colonoscopy 2002 Colorectal Cancer Screening 2002 Immunochemical Fecal Occult Blood 2002 Pneumococcal Immunization (50+ years) (1 of 1 - PCV) 2007 Zoster Immunization (2 of 3) 04/08/2015 02/11/2015 SARS-COV-2 Immunization ( - season) 2023 02/04/2021, 05/26/2020 Influenza Immunization (Season Ended) 2024 12/27/2017, 01/28/2017, 03/02/2016, Additional history exists Respiratory Syncytial Virus (RSV) Immunization (Adult) (1 - 1-dose 75+ series) 02/17/2032 Hepatitis B Immunization Aged Out No longer eligible based on patient's age to complete this topic Human Papillomavirus (HPV) Immunization Aged Out No longer eligible based on patient's age to complete this topic Meningococcal Immunization (ACWY) Aged Out No longer eligible based on patient's age to complete this topic Rotavirus Immunization Aged Out No lo nger eligible based on patient's age to complete this topic Insurance [facility] Care Teams Supervising Chef Relationship Specialty Start Date End Date Sanjay De MD PCP - General Internal Medicine 12/04/18
--- OUTSIDE RECORDS SUMMARY | 2024-09-03 02:00 | XMS_ITS | Referral Summary ---
Author Organization [facility] Address [address] [place] [address] Care Team Providers Care Correctional Captain Name Role Phone Devi Meyers MD Primary Care Provider Encounters Date Type Department Care Team Description 08/15/2024 Results Follow-Up [facility] Department of Otolaryngology Head-Neck Division [address] [place] [phone] Chen Rudd RN Surgical pathology 07/27/2024 Orders Only [facility] [address] [place] [address] Bahman Echevarria MD Lip cancer 07/27/2024 Orders Only [facility] Department of Otolaryngology Head-Neck Division [address] [place] [phone] Tenisha Dennis RN Lip cancer (Primary Dx) 07/24/2024 Telephone [facility] Otolaryngology [address] [place] [phone] Mariann Gutierrez MS 07/23/2024 3:20 PM CDT Office Visit [facility] Department of Otolaryngology Head-Neck Division [address] [place] [phone] Bahman Echevarria MD Lip cancer (Primary Dx) 07/23/2024 1:17 PM CDT - 07/23/2024 11:59 PM CDT Hospital Encounter [facility] [place] [address] Bahman Echevarria MD Lip cancer Discharge Disposition: Discharge to home or self care 07/18/2024 Orders Only [facility] Department of Otolaryngology Head-Neck Division [address] [place] [phone] Bahman Echevarria MD Lip cancer (Primary Dx) 07/09/2024 1:00 PM CDT Office Visit [facility] Department of Otolaryngology Head-Neck Division [address] [place] [phone] Mague Hall PA Lip cancer (Primary Dx) [...] (09/23/2017): Added automatically from request for surgery [id number] BMI 31.0-31.9,adult 04/01/2017 Assessment & Plan (12/08/2018 [...] yearly. Assessment & Plan (04/05/2017 10:19 PM TURNER SPLITTER MACHINE OPERATOR): Patient should reduce sugar and carbs, increase [...] develop. Assessment & Plan (04/05/2017 10:19 PM TURNER SPLITTER MACHINE OPERATOR): Start lisinopril and warned of side effects [...] PM CDT Legal Sex Male 11:53 PM TURNER SPLITTER MACHINE OPERATOR Gender Identity Male 06/06/2018 6:46 PM CDT [...] RNA QUANT PCR Routine 03/19/2017 12:09 PM TURNER SPLITTER MACHINE OPERATOR from Last 3 Months or Most Recently Relevant to Health Maintenance Results * Surgical pathology (07/31/2024 10:44 AM CDT) Tissue (Miscellaneous) 07/31/2024 10:44 AM CDT 07/06/2024 Narrative [facility] - 08/07/2024 9:20 AM CDT EPIC results best viewed via link to PDF [facility] [address] [place] [address], Suite [facility], [place] [address] [email or web address] CONSULT REPORT FINAL Note to Patients: [...] 08/07/2024 PHYSICIAN INFORMATION Bahman Echevarria M.D., PH.D.: [id number] [facility], [address], [place] [address], , DERMATOPATHOLOGY REPORT RESULTS DIAGNOSIS: SKIN, RIGHT NECK, SHAVE BIOPSY (CASE # [id number], 2 SLIDES RECEIVED): SQUAMOUS CELL CARCINOMA, MODERATELY [...] stains were performed and interpreted at the [facility] to further characterize the tumor. The tumor cells expres CK5/6 but are negative for BerEp4. (C44.92) GROSS DESCRIPTION: Received for review are 2 H&E stained glass slides. The slides are labeled with the original accession [id number], accompanied by a corresponding pathology report. The material originates from [facility] ([place], [place]). Clerical Data Follows A; [id number]-XG, [id number] IHC, [address] The characteristics of special, immunohistochemical, and immunofluorescence stains and in-situ hybridization tests performed by the [facility] were deemed acceptable in ongoing quality assurance intern measures and in compliance with regulations drawn from the Clinical Laboratory Improvement Act bi2742 (CLIA '88). Control reactions for all stains performed were deemed adequate and appropriate by a pathologist prior to evaluation of patient tissue. Some diagnoses were rendered with the assistance of laboratory-developed tests utilizing analyte-specific reagents; the performance characteristic of these tests were determined by [facility] and are not cleared or approved by the [place] Food an Drug administration. Laboratory developed test may only be performed in a facility that is certified by the [facility] as a high-complexity laboratory under CLIA '88. These tests are used for clinical purposes and are not investigational. Bahman Echevarria MD LAB PATHOLOGY ORDERABL ES Final Result [facility] [address] [facility] [address] [place] [address] * CT Chest W Contrast (07/23/2024 2:16 [...] are normal. The limited view of the [place] is unremarkable. The visualized portions [...] are normal. The limited view of the [place] is unremarkable. The visualized portions [...] it. Electronically signed by: Dewayne Cai M.D. us Bahman Venkat Echevarria MD IMG CT PROCEDURES Jo l Result * COLONOSCOPY (10/21/2022 7:19 AM CDT) Anatomical Region Laterality Modality Other Narrative Procedure Note John Petersen MD - 10/21/2022 7:19 AM CDT [facility] Patient Name: Blayne Gonzalez Procedure Date: 10/21/2022 7:19 AM Date of : 1955 Admit Type: Outpatient Age: 67 Gender: Male Attending MD: John Petersen M.D. Room: [facility] 1 Note Status: Finalized Patient [...] scope was passed under direct vision. TheColonoscope [id number] was introduced through the anus and advanced [...] history of colonic polyps CPT copyright 2020 [employer]. All rights reserved. The codes documented in this report are preliminary and upon manufacturing teacher reviewmay be revised to meet current compliance requirements. Recognized by the [employer] for promoting quality in endoscopy John Petersen MD ENDOSCOPY PROCEDURES Final Re sult * PSA screen (11/17/2018 6:56 AM CDT) PSA-Total 1.24 <=5.40 ng/mL [facility] Comment: Interpretive Data AGE SEX REFERENCE INTERVAL 0 minutes-150 years Female None 0 minutes-49 years Male None 50-59 years Male 0-3.90 60-69 years Male 0-5.40 70-79 years Male 0-6.20 80-150 years Male 0-6.20 Current interpretive data last revised 2018. Blood specimen (specimen) 11/17/2018 6:56 AM CDT 11/17/2018 2:48 PM CDT Result [facility] Sanjay De MD LAB BLOOD ORDERABLES Final R esult Performing Organization Address City/[facility]/ZIP Co de Phone Number [facility] [id number] [email or web address] [address] * Hepatitis C Antibody Reflex Hepatitis C RNA Quantitative PCR (03/19/2017 12:09 PM TURNER SPLITTER MACHINE OPERATOR) Pathologist [facility] Hep C Ab Negative Negative [facility] Blood specimen (specimen) 03/19/2017 12:09 PM TURNER SPLITTER MACHINE OPERATOR 03/19/2017 12:15 PM TURNER SPLITTER MACHINE OPERATOR Narrative [facility] - 03/19/2017 1:01 PM TURNER SPLITTER MACHINE OPERATOR Sanjay De MD LAB MICROBIOLOGY - GENERAL O RDERABLES Final Result [facility] [address] [email or web address] [address] from Last 3 Months or Most Recently Relevant to Health Maintenance Insurance MEDICARE AETNA SENIOR SUPPLEMENT AETNA MEDICARE AETNA MEDICARE AETNA MEDICARE AETNA SENIOR SUPPLEMENT Advance Directives For more information, please contact: [phone] Documents on File Type Date Recorded Patient Union Organizer Expl anation ADVANCE DIRECTIVE 12/20/2023 9:31 AM Power of Retail Sales Assistant-Medical * Full Code (Latest Code Status on File) Date Activated Date Inactivated Comments 10/21/2022 7:24 AM 10/21/2022 1:23 PM * Full Code Date Activated Date Inactivated Comments 10/21/2022 7:24 AM 10/21/2022 7:24 AM * Full Code Date Activated Date Inactivated Comments 10/07/2017 10:23 AM 10/07/2017 2:10 PM Care Teams Correctional Captain Relationship Specialty Start Date End Date Devi Meyers MD [address] [place] [address] PCP - General Internal Medicine 05/04/22
[2024-09-03] MEDS: LACTATED RINGERS 1,000 ML 30 ML IV CONT ×2 (06:30→11:05)
[2024-09-03] MEDS: ACETAMINOPHEN 500 MG TABLET 1000 MG PO (06:31)
[2024-09-03] MEDS: TRANEXAMIC ACID 1,000MG/ISO100 1,000 MG/100 ML BAG 200 MG IVPB (06:32)
[2024-09-03] MEDS: VANCOMYCIN 1,500 MG/NS 500 ML BAG 250 MG IVPB (06:39)
--- NOTE | 2024-09-03 07:08 | P.PNAN_ITS ---
Anes - Initial Pre Proc Eval Procedure: Operation Date: 09/03/24 07:30 Proposed Procedures p Right Total Hip Athroplasty, Anterior Approach - Lalo Davis MD Date/Time: 09/03/24 07:08 Surgeon: Lalo Davis MD Pre Op Diagnosis: O A Rt HIp Patient Data Age: 69 Gender: M Height: 1.77 m Weight: 91.7 kg Last Vital Signs Temp 36.8 C 08/09/24 10:33 Pulse 63 08/09/24 10:33 Resp 18 08/09/24 10:33 BP 139/86 08/09/24 10:33 Pulse Ox 98 08/09/24 10:33 O2 Del Method Room Air 08/09/24 10:33 Allergies Allergy/AdvReac Type Severity Reaction Status Date / Time No Known Allergies Allergy Verified 09/03/24 06:44 Home Medications ?Medication ?Instructions ?Recorded ?Confirmed ?Type antiarthritic combination no.2 900 1,500 mg PO DAILY 07/06/24 08/09/24 History mg tablet (glucosamine-chondroitin) atorvastatin 10 mg tablet (Lipitor) 10 mg PO DAILY 07/06/24 09/03/24 History celecoxib 200 mg capsule 200 mg PO DAILY 07/06/24 08/09/24 History coenzyme Q10 200 mg capsule 200 mg PO DAILY 07/06/24 09/03/24 History losartan 50 mg-hydrochlorothiazide 1 tablet PO DAILY 07/06/24 09/03/24 History 12.5 mg tablet mecobalamin (vitamin B12) 1,000 2,000 mcg PO DAILY 07/06/24 09/03/24 History mcg chewable tablet omega-3 fatty acids 1,250 mg 1,250 mg PO DAILY 07/06/24 09/03/24 History capsule fluorouracil 5 % topical cream 1 applic topical PRN FACE 08/09/24 08/09/24 History Laboratory Tests 09/03/24 06:27 Blood Type Pending Antibody Screen Pending Patient hx anesthesia problems: none Family hx anesthesia problems: none Results Review: All pre-operative results and documents have been reviewed as part of the pre-operative evaluation. [facility] Surgical History Surgical History History of carpal tunnel release 2013 History of neck surgery disc replacement 2003 History of knee surgery [id number] History of tonsillectomy 1977 Social History Social History Smoking status: Never smoker Additional smoking assessment comments: DENIES ANY FORM OF TOBACCO USE. QUIT CHEWING TOBACCO 2009 Alcohol intake: current Drinks per week: 5 Alcohol use details: BEER Substance use: never Do You Feel Safe in your Home?: Yes Lack of Transportation: No Lack of Food: Never True Current Housing: I Have Housing Concerned About Future Housing: No Difficulty Paying Gas/Electric Bills: No Difficulty Paying for Meds: No Currently Unemployed: No Living arrangements: with family Spiritual care concerns: No Anes - Eval Final PreProcedure Day of Procedure 09/03/24 07:08 Patient weight: overweight Heart: regular rate and rhythm Lungs: clear to auscultation Airway: Mallampati scale class II Neurological: alert and oriented Last oral intake: >/= 8 hours ASA classification: III Emergent: no Anesthetic plan: proceed Anesthesia type and monitoring: general ETT and standard monitoring Results Review: All pre-operative results and documents have been reviewed as part of the pre- operative evaluation. Informed Consent: The patient's anesthetic plan and its attendant risks and benefits were discussed with the patient/family/POA. Questions were solicited and answers provided to the satisfaction of the patient/family/POA.
--- NOTE | 2024-09-03 07:09 | P.OP_ITS ---
Procedure Note - Detailed Date of Procedure 09/03/24 Pre-op Diagnosis O A Rt HIp Post-op Diagnosis Same Procedure Performed Direct anterior approach right total hip replacement Surgeon Lalo Davis MD Franchise Business Consultant Ivan Ramirez PA-C Anesthesia General Description of Procedure Patient was brought to the operating room and general anesthesia was administered. He received 2 g of Ancef weight based vancomycin 1 g of TXA preoperatively. Padding was applied the feet and boots applied and the patient transferred to the OSI [place] table. SCDs were applied to the calves and running during the procedure. The right hip was prepped draped usual fashion. A 10 cm longitudinal incision was made starting 3 cm lateral to the ASIS. Dissection was carried down the fascia over the tensor fascia elvin which was exposed and longitudinally incised. Interval between tensor fascia elvin and rectus femoris developed and crossing vessels of ascending lateral femoral circumflex vessels were ligated with suture divided. Retractor was placed anteromedial to the capsule hip abducted internally rotated the gluteus minimus elevated off the lateral capsule. Inverted T capsulotomy was performed. Femoral neck osteotomy was made. The femoral head was removed. It was very hypertrophic at periphery measuring 50 mm in diameter. The acetabulum was exposed labrum excised. Large anterior and inferior osteophytes noted. The acetabulum was reamed starting with a 44 Reamer medialized into the medial wall and reaming up to a 51 Reamer. This point I felt that a 52 be the best size given peripheral contact with reaming bone circumferentially. A light reaming with the 52 Reamer was performed and fine seated and 52 Depuy pinnacle cup which achieved a tight press fit. This was placed at 40? of abduction and appropriate anteversion. Single screw placed into the ilium for fixation which achieved excellent purchase and the 36 inner diameter polyethylene liner was fully seated without difficulty. The hip was externally rotated and extended period the femur was mobile enough that we did not have to incise between piriformis and conjoined tendon. We did remove a little bit of the medial aspect of conjoined tendon to allow exposure of the proper entry site to the femur and we broached up to a size 4. His bone was quite dense. He had a type a femur. An intraoperative x-ray was obtained which showed the we had equal leg lengths at the height which we were broached. We were trialing with the 1.5 head on the high offset neck which was according to our preoperative templating. Satisfied with this we calcar planed. We then assessed stability of the broach which was use on torsional stress and we were able to broach up to a size 5 but this required reaming with the 0/1 tapered flexible Reamer to allow this approach to impact the appropriate depth. Unfortunately with torsional stress the 5 approved loose as well. We broached up to a 6 and this required the use of the 2/3 flexible Reamer and this allowed the 6 to sit at a place 2 mm below the level of calcar planed to make up for the 2 mm in height difference between the 4 and the 6. This gave complete torsional stability. Trialing with the 1.5 he again saw under fluoro equal leg lengths and appropriate offset and normal soft tissue tension. Calcar planing was completed and we impacted the size 6 high offset Actis stem which inserted fully and rested on the calcar appropriately without complication or cracks in the bone. We trialed once again with the 1.5 head which gave us the same findings as above. The ceramic 36 mm x 1.5 ceramic head was impacted onto the clean and dry trunnion of the femoral component. After repeated irrigation with Ancef solution the hip was reduced stability reconfirmed intraoperative x-ray showed no radiographic complication. The vertical limb of the capsulotomy was approximated with 2. Vicryl. Local anesthetic periarticular cocktail was injected in the tissues. The fascia closed with running 1. Vicryl drain deep in the subcu skin closed with 2 subcutaneous Vicryl and glue EBL was 500 cc and he was given 250 back as Cell Saver. Additional 2 g of Ancef 1 g TXA given time wound closure. He tolerated the procedure well he was transferred postop recovery room in stable condition. No known complications. Bone quality was excellent we will allow and be weight-bearing as tolerated. [facility] Billing Surgery - Charge Forward: Surgery Billing (Right total hip replacement)
--- NOTE | 2024-09-03 07:10 | WPDHPUPDATE1 ---
History and Physical Update Update Date/Time: 09/03/24 07:10 History and Physical has been reviewed, including an updated exam of the patient. There are NO changes in the patient's condition. Risks, benefits, and alternatives have been discussed and questions answered. Patient agrees to proceed with procedure.
[2024-09-03] MEDS: ceFAZolin 2 GM/D5W 50 ML 2 GM/50 ML BAG IVPB ×3 (07:27→22:12)
[2024-09-03] MEDS: ceFAZolin SODIUM 1 GM VIAL 3 GM IRRIGATION (08:02)
[2024-09-03] MEDS: SODIUM CHLORIDE 0.9% IV 37.7 ML, MORPHINE SULFATE INJ (*CRX) 2 MG, ROPivacaine HCL 1% 2... INFILTRATE (08:03)
[2024-09-03] MEDS: KETOROLAC 15 MG/ML VIAL (*BKC) IV PUSH ×3 (10:35→22:13)
[2024-09-03] MEDS: TRANEXAMIC ACID 1,000 MG/10 ML AMPUL 1000 MG IV PUSH (10:35)
[2024-09-03] MEDS: ceFAZolin SODIUM 1 GM VIAL 2 GM IV PUSH (10:35)
--- NOTE | 2024-09-03 11:17 | PM.OP ---
Procedure Note - Brief Procedure Note - Brief Date of procedure: 09/03/24 O A Rt HIp Procedure performed: Right anterior total hip arthroplasty Surgeon: MELVINA Ann Findings: 69-year-old male who underwent right anterior total hip arthroplasty on 09/03. I was involved in the procedure including positioning the patient on the OR table in 1st assisting through the time surgery. Total time spent was 3-1/2 hours
--- NOTE | 2024-09-03 12:38 | ADMGEN ---
This patient, Blayne Panda, was admitted to [facility] Surg Room 330-01. Patient/family oriented to hospital policies and general routines including ID bracelet, bed and alarms, visiting hours, pain management, procedures, bathroom and other care routines, personal items, smoking policy, room service/diet, and visiting hours. Information on how to activate the Rapid Response Team has been discussed. Patient/Family are encouraged to report perceived risks to care and to ask questions if they do not understand what they are told or what they should do.
[2024-09-03] MEDS: ACETAMINOPHEN 325 MG TABLET 650 MG PO ×3 (13:39→20:40)
[2024-09-03] MEDS: oxyCODONE HCL (*CRX) 5 MG TAB IR PO ×3 (13:39→20:40)
[2024-09-03] MEDS: VANCOMYCIN 1,000 MG/NS 250 ML 1,000 MG/250 ML BAG 250 MG IVPB (16:58)
[2024-09-03] MEDS: FAMOTIDINE 20 MG TABLET PO (20:40)
[2024-09-04] MEDS: ACETAMINOPHEN 325 MG TABLET 650 MG PO ×3 (00:41→08:34)
[2024-09-04] MEDS: oxyCODONE HCL (*CRX) 5 MG TAB IR PO ×3 (00:41→08:33)
[2024-09-04 00:57] VITALS: BP 113/65; PULSE 73; RESP 16; TEMP 37.2; O2SAT 96
[2024-09-04] MEDS: VANCOMYCIN 1,000 MG/NS 250 ML 1,000 MG/250 ML BAG 250 MG IVPB (06:15)
[2024-09-04 06:34] LABS: Basophils Percent Auto 0.3 % (0.2-1.2); Eosinophils Percent Auto 0.3 % (0-4.4); Hematocrit 35.5 % (42.0-52.0); Hemoglobin 11.6 g/dL (14.0-18.0); Immature Granulocyte Absolute 0.04 K/mm3 (0.00-0.031); Immature Granulocyte Percent A 0.4 % (0-0.5); Lymphocytes Absolute Auto 1.27 K/mm3 (0.9-3.2); Lymphocytes Percent Auto 11.7 % (18.3-44.2); Mean Corpuscular HGB Conc 32.7 g/dl (32-36); Mean Corpuscular Hemoglobin 30.4 pg (26-34); Mean Corpuscular Volume 92.9 fl (80-100); Monocytes Absolute Auto 1.1 K/mm3 (0.1-0.6); Monocytes Percent Auto 10.3 % (2.6-8.5); Neutrophils Absolute Auto 8.4 K/mm3 (1.3-6.7); Platelet Count Result 147 k/mm3 (150-375); Red Blood Count 3.82 M/mm3 (4.6-6.20); Red Cell Distribution Width 12.9 % (11.5-14.5); White Blood Count 10.9 K/mm3 (4.5-10.0)
--- NOTE | 2024-09-04 06:35 | PM.PNORT ---
Subjective Subjective Date/Time Seen: 09/04/24 06:35 Interval history: Postop day 1 patient is alert. He is afebrile vital signs are stable. Morning labs are pending. His dressing has been changed and drain is out. He has been up to the restroom multiple times overnight urinating well. He did get up to the floor late yesterday in therapy did not see him. Patient's pain is very well controlled. Neurovascularly he is intact. Overall patient is doing very well. Will plan have the patient work with therapy this morning and once IV antibiotics have been completed will plan to discharge him home late this morning. Objective Data Vital Signs Vital Signs: Vital Signs - 24 hr 09/03/24 11:05 09/03/24 11:15 09/03/24 11:30 Temperature 97.0 F L Pulse Rate 101 H 81 91 Respiratory Rate 22 H 12 12 Blood Pressure 147/86 H 135/83 139/73 Pulse Oximetry 97 99 95 Oxygen Delivery Simple Face Mask Simple Face Mask Room Air Oxygen Flow Rate 8 8 09/03/24 11:45 09/03/24 12:00 09/03/24 12:15 Temperature Pulse Rate 86 80 90 Respiratory Rate 15 12 20 Blood Pressure 149/76 H 128/81 135/84 Pulse Oximetry 99 99 98 Oxygen Delivery Nasal Cannula Nasal Cannula Nasal Cannula Oxygen Flow Rate 2 2 2 09/03/24 12:40 09/03/24 12:55 09/03/24 13:03 Temperature 97.4 F L 97.2 F L Pulse Rate 92 87 Respiratory Rate 18 18 Blood Pressure 130/85 138/81 Pulse Oximetry 96 100 98 Oxygen Delivery Nasal Cannula Oxygen Flow Rate 2 09/03/24 13:25 09/03/24 13:57 09/03/24 14:20 Temperature 97.6 F Pulse Rate 92 Respiratory Rate 18 Blood Pressure 130/76 Pulse Oximetry 98 Oxygen Delivery Room Air Room Air Oxygen Flow Rate 09/03/24 14:25 09/03/24 18:02 09/03/24 22:02 Temperature 97.3 F L 97.6 F 98.2 F Pulse Rate 94 85 85 Respiratory Rate 18 18 16 Blood Pressure 119/82 136/78 124/71 Pulse Oximetry 97 96 98 Oxygen Delivery Oxygen Flow Rate 09/04/24 00:57 Temperature 98.9 F Pulse Rate 73 Respiratory Rate 16 Blood Pressure 113/65 Pulse Oximetry 96 Oxygen Delivery Oxygen Flow Rate Intake/Output Intake/Output: Intake & Output 09/01/24 09/02/24 09/03/24 09/04/24 23:59 23:59 23:59 23:59 Intake Total 570 Balance 570 Meds/Results Medications: Active Medications Generic Name Dose Route Start Last Admin Trade Name Freq PRN Reason Stop Dose Admin Acetaminophen 650 mg 09/03/24 13:00 09/04/24 06:16 Acetaminophen 325 Mg Tablet PO 650 mg Q4HR SULEIMAN Administration Apixaban 2.5 mg 09/04/24 09:00 Apixaban 2.5 Mg Tablet PO Q12HR SULEIMAN Atorvastatin Calcium 10 mg 09/04/24 09:00 Atorvastatin 10 Mg Tablet PO DAILY SULEIMAN Cefdinir 300 mg 09/04/24 14:00 Cefdinir 300 Mg Capsule PO Q12HR SULEIMAN Celecoxib 200 mg 09/04/24 09:00 Celecoxib 200 Mg Capsule PO DAILY [facility] Cyanocobalamin 2,000 mcg 09/04/24 09:00 Cyanocobalamin 1,000 Mcg Tablet PO QAM [facility] Famotidine 20 mg 09/03/24 21:00 09/03/24 20:40 Famotidine 20 Mg Tablet PO 20 mg Q12HR SULEIMAN Administration Hydrochlorothiazide 12.5 mg 09/04/24 09:00 Hydrochlorothiazide 12.5 Mg Capsule PO QAM [facility] Cefazolin Sodium 2 gm in 50 mls @ 100 mls/hr 09/03/24 15:00 09/03/24 22:12 Ancef 2 Gm/D5w 50 Ml IVPB 09/04/24 07:29 100 mls/hr Q8H SULEIMAN Administration Vancomycin HCl 1,000 mg in 250 mls @ 250 mls/hr 09/03/24 18:30 09/04/24 06:15 Vancomycin 1,000 Mg/Ns 250 Ml IVPB 09/04/24 07:29 250 mls/hr Q12H SULEIMAN Administration Losartan Potassium 50 mg 09/04/24 09:00 Losartan Potassium 50 Mg Tablet PO QAM [facility] Morphine Sulfate 2 mg 09/03/24 12:17 Morphine Sulfate (*Crx) 2 Mg/Ml Inj IV PUSH Q2H PRN Breakthrough Pain Rated 4-6 or NPO Naloxone HCl 0.1 mg 09/03/24 12:17 Naloxone Hcl 0.4 Mg/Ml Vial IV PUSH Q2M PRN Opiate Reversal Ondansetron HCl 4 mg 09/03/24 12:17 Ondansetron Inj 4 Mg/2 Ml Vial IV PUSH Q4H PRN Nausea And Vomiting Oxycodone HCl 5 mg 09/03/24 13:00 09/04/24 06:16 Oxycodone Hcl (*Crx) 5 Mg Tab Ir PO 5 mg Q4HR SULEIMAN Administration Oxycodone HCl 5 mg 09/03/24 12:17 Oxycodone Hcl (*Crx) 5 Mg Tab Ir PO Q4H PRN Pain Rated 7-10 Polyethylene Glycol 17 gm 09/04/24 09:00 Polyethylene Glycol 3350 17 Gm Powd.Pack PO QAM SULEIMAN Senna/Docusate Sodium 2 tab 09/03/24 17:00 09/03/24 16:57 Senna/Docusate Sodium Tablet PO Not Given BID [facility] Radiology Results: ITS Impressions Hip/Pelvis X-Ray 09/03/24 11:15 IMPRESSION: No acute osseous abnormality pelvis and right hip. Right hip arthroplasty. Severe left hip osteoarthritic changes. Intraoperative X-Ray 09/03/24 11:20 IMPRESSION: 1. Expected appearance during right total hip arthroplasty. Labs Labs: Laboratory Results - last 24 hr 09/03/24 06:27 Blood Type O Positive Antibody Screen Negative
[2024-09-04 06:49] LABS: Anion Gap 5 mmol/L (4-12); Blood Urea Nitrogen 14 mg/dL (9-20); Calcium 8.3 mg/dL (8.4-10.2); Carbon Dioxide 27 mmol/L (22-30); Chloride 104 mmol/L (98-107); Estimated CRCL calculation 71 ml/min; Estimated Glomerular Filt Rate > 60; Glucose 102 mg/dL (65-110); Potassium 3.4 mmol/L (3.4-5.0); Sodium 136 mmol/L (137-145)
[2024-09-04] MEDS: ceFAZolin 2 GM/D5W 50 ML 2 GM/50 ML BAG IVPB (08:24)
[2024-09-04] MEDS: polyethylene glycoL 3350 17 GM POWD.PACK PO (08:32)
[2024-09-04] MEDS: SENNA/DOCUSATE SODIUM TABLET 2 TAB PO (08:33)
[2024-09-04] MEDS: LOSARTAN POTASSIUM 50 MG TABLET PO (08:34)
[2024-09-04] MEDS: ATORVASTATIN 10 MG TABLET PO (08:34)
[2024-09-04] MEDS: APIXABAN 2.5 MG TABLET PO (08:34)
[2024-09-04] MEDS: CYANOCOBALAMIN 1,000 MCG TABLET 2000 MCG PO (08:34)
[2024-09-04] MEDS: FAMOTIDINE 20 MG TABLET PO (08:34)
[2024-09-04] MEDS: CELECOXIB 200 MG CAPSULE PO (08:34)
[2024-09-04] MEDS: hydroCHLOROthiazide 12.5 MG CAPSULE PO (08:35)
[2024-09-04 10:02] VITALS: BP 129/73; PULSE 70; RESP 16; TEMP 36.2; O2SAT 98
== END 2024-09-04 11:05 | disposition home or self-care (01) ==
LOC: ANHSURGERY 05:44 → ANH3MEDSUR 12:20
PROVIDERS: Physician Assistant Surgical; PCP Internal Medicine; Visit Provider Orthopaedic Surgery
PROC: (CPT 27130; principal; 2024-09-03 07:30)
DX: M16.11 Unilateral primary osteoarthritis, right hip (principal); Z87.891 Personal history of nicotine dependence
CPT/HCPCS: 27130; 36415; 73501; 80048; 85025; 86850; 86900; 86901; 97110; 97116; 97161; 97165; 97530; 97535; 99199; A9270; C1776; J0171; J0690; J1100; J1171; J1885; J2003; J2250; J2270; J2405; J2704; J2795; J3010; J3370; J7120